=== PATIENT | female | born 1960 | race Caucasian/White ===

== ENCOUNTER 2016-10-27 07:43 | Outpatient (CLI) | payer OTHER ==
[2016-10-27 08:44] LABS: ALBUMIN/GLOBULIN RATIO 1.6 (1.0-2.2); BILIRUBIN,TOTAL 1.5 mg/dL (0.2-1.0); BUN - BLOOD UREA NITROGEN 25 mg/dL (6-20); CALCIUM 10.1 mg/dL (8.5-10.3); CARBON DIOXIDE - CO2 27 mmol/L (21-32); CHLORIDE 102 mmol/L (101-111); CHOL/HDL RATIO 3.3 (<4.4); CHOLESTEROL 207 mg/dL; CREATININE 0.9 mg/dL (0.4-1.0); GFR - MDRD 65 (>89); GLUCOSE 147 mg/dL (70-100); HDL CHOLESTEROL 63 mg/dL; LDL/HDL RATIO 1.7 (<4.4); POTASSIUM 4.1 mmol/L (3.5-5.0); SODIUM 140 mmol/L (135-145); TOTAL PROTEIN 7.6 g/dL (6.7-8.2); TRIGLYCERIDES 180 mg/dL; VLDL CHOLESTEROL 36 mg/dL
[2016-10-27 08:45] LABS: HEMOGLOBIN A1C 0.8 g/dL
== END 2016-10-27 07:44 | disposition home or self-care (01) ==
LOC: LAB 07:43
PROVIDERS: ATTEND Physician Assistant Medical
DX: E78.5 Hyperlipidemia, unspecified (principal); R73.01 Impaired fasting glucose
CPT/HCPCS: 36415; 80053; 80061; 83036

== ENCOUNTER 2016-12-09 08:14 | Outpatient (CLI) | payer OTHER | END 2016-12-09 08:15 | disposition home or self-care (01) | LOC: DI 08:14 | PROVIDERS: ATTEND Physician Assistant Medical | DX: R01.1 Cardiac murmur, unspecified (principal) | CPT/HCPCS: 93306 ==

== ENCOUNTER 2017-02-27 07:37 | Outpatient (CLI) | payer OTHER ==
[2017-02-27 08:53] LABS: ALBUMIN/GLOBULIN RATIO 1.5 (1.0-2.2); BILIRUBIN,TOTAL 1.4 mg/dL (0.2-1.0); BUN - BLOOD UREA NITROGEN 28 mg/dL (6-20); CALCIUM 10.4 mg/dL (8.5-10.3); CARBON DIOXIDE - CO2 26 mmol/L (21-32); CHLORIDE 98 mmol/L (101-111); CHOL/HDL RATIO 3.8 (<4.4); CHOLESTEROL 273 mg/dL; CREATININE 1.1 mg/dL (0.4-1.0); GFR - MDRD 51 (>89); GLUCOSE 133 mg/dL (70-100); HDL CHOLESTEROL 72 mg/dL; LDL/HDL RATIO 2.4 (<4.4); SODIUM 137 mmol/L (135-145); TOTAL PROTEIN 7.9 g/dL (6.7-8.2); TRIGLYCERIDES 157 mg/dL; VLDL CHOLESTEROL 31 mg/dL
[2017-02-27 09:13] LABS: HEMOGLOBIN A1C 0.69 g/dL
== END 2017-02-27 07:38 | disposition home or self-care (01) ==
LOC: LAB 07:37
PROVIDERS: ATTEND Physician Assistant Medical
DX: E11.9 Type 2 diabetes mellitus without complications (principal)
CPT/HCPCS: 36415; 80053; 80061; 83036

== ENCOUNTER 2017-05-24 08:14 | Outpatient (CLI) | payer OTHER ==
[2017-05-24 08:51] LABS: ALBUMIN 4.7 g/dL (3.2-5.5); ALBUMIN/GLOBULIN RATIO 1.6 (1.0-2.2); ALKALINE PHOSPHATASE 50 IU/L (42-121); ALT ALANINE AMINOTRANSFERASE 17 IU/L (10-60); AST ASPARTATE AMINOTRANSFERASE 25 IU/L (10-42); BILIRUBIN,TOTAL 1.6 mg/dL (0.2-1.0); BUN - BLOOD UREA NITROGEN 24 mg/dL (6-20); CALCIUM 10.1 mg/dL (8.5-10.3); CARBON DIOXIDE - CO2 25 mmol/L (21-32); CHLORIDE 100 mmol/L (101-111); CHOL/HDL RATIO 2.8 (<4.4); CHOLESTEROL 172 mg/dL; CREATININE 1.1 mg/dL (0.4-1.0); GFR - MDRD 51 (>89); GLUCOSE 154 mg/dL (70-100); HDL CHOLESTEROL 62 mg/dL; LDL CHOLESTEROL,CALCULATED 85 mg/dL; LDL/HDL RATIO 1.4 (<4.4); SODIUM 137 mmol/L (135-145); TOTAL PROTEIN 7.7 g/dL (6.7-8.2); VLDL CHOLESTEROL 25 mg/dL
[2017-05-24 08:52] LABS: HB2 TOTAL 14.4 g/dL; HEMOGLOBIN A1C 0.78 g/dL; HEMOGLOBIN A1C % 7.1 % (4.6-6.2)
== END 2017-05-24 08:15 | disposition home or self-care (01) ==
LOC: LAB 08:14
PROVIDERS: ATTEND Physician Assistant Medical
DX: E11.9 Type 2 diabetes mellitus without complications (principal)
CPT/HCPCS: 36415; 80053; 80061; 83036; 83721

== ENCOUNTER 2017-08-31 07:34 | Outpatient (CLI) | payer OTHER ==
[2017-08-31 08:06] LABS: CALCIUM 10.2 mg/dL (8.5-10.3)
[2017-08-31 08:47] LABS: HB2 TOTAL 14.8 g/dL; HEMOGLOBIN A1C 1.14 g/dL; HEMOGLOBIN A1C % 9.2 % (4.6-6.2)
== END 2017-08-31 07:35 | disposition home or self-care (01) ==
LOC: LAB 07:34
PROVIDERS: ATTEND Physician Assistant Medical
DX: E11.9 Type 2 diabetes mellitus without complications (principal)
CPT/HCPCS: 36415; 80048; 83036

== ENCOUNTER 2018-01-24 08:18 | Outpatient (CLI) | payer OTHER ==
[2018-01-24 09:04] LABS: ALBUMIN 4.5 g/dL (3.2-5.5); ALBUMIN/GLOBULIN RATIO 1.4 (1.0-2.2); ALKALINE PHOSPHATASE 65 IU/L (42-121); ALT ALANINE AMINOTRANSFERASE 17 IU/L (10-60); AST ASPARTATE AMINOTRANSFERASE 23 IU/L (10-42); BILIRUBIN,TOTAL 1.7 mg/dL (0.2-1.0); BUN - BLOOD UREA NITROGEN 27 mg/dL (6-20); CALCIUM 10.1 mg/dL (8.5-10.3); CARBON DIOXIDE - CO2 28 mmol/L (21-32); CHLORIDE 101 mmol/L (101-111); CHOL/HDL RATIO 2.8 (<4.4); CHOLESTEROL 217 mg/dL; GFR - MDRD 57 (>89); GLUCOSE 154 mg/dL (70-100); HDL CHOLESTEROL 77 mg/dL; LDL CHOLESTEROL,CALCULATED 110 mg/dL; LDL/HDL RATIO 1.4 (<4.4); SODIUM 138 mmol/L (135-145); TOTAL PROTEIN 7.8 g/dL (6.7-8.2); VLDL CHOLESTEROL 30 mg/dL
[2018-01-24 09:06] LABS: HB2 TOTAL 14.9 g/dL; HEMOGLOBIN A1C 0.86 g/dL; HEMOGLOBIN A1C % 7.4 % (4.6-6.2)
== END 2018-01-24 08:19 | disposition home or self-care (01) ==
LOC: LAB 08:18
PROVIDERS: ATTEND Physician Assistant Medical
DX: E11.9 Type 2 diabetes mellitus without complications (principal)
CPT/HCPCS: 36415; 80053; 80061; 83036; 83721

== ENCOUNTER 2018-04-23 08:06 | Outpatient (CLI) | payer OTHER ==
[2018-04-23 09:08] LABS: BUN - BLOOD UREA NITROGEN 17 mg/dL (6-20); CALCIUM 9.9 mg/dL (8.5-10.3); CARBON DIOXIDE - CO2 26 mmol/L (21-32); CHLORIDE 96 mmol/L (101-111); CHOL/HDL RATIO 2.6 (<4.4); CHOLESTEROL 181 mg/dL; GFR - MDRD 57 (>89); GLUCOSE 163 mg/dL (70-100); HDL CHOLESTEROL 70 mg/dL; LDL CHOLESTEROL,CALCULATED 90 mg/dL; LDL/HDL RATIO 1.3 (<4.4); SODIUM 133 mmol/L (135-145); VLDL CHOLESTEROL 21 mg/dL
[2018-04-23 09:48] LABS: HEMOGLOBIN A1C 0.6 g/dL; HEMOGLOBIN A1C % 6.4 % (4.6-6.2)
== END 2018-04-23 08:07 | disposition home or self-care (01) ==
LOC: LAB 08:06
PROVIDERS: ATTEND Physician Assistant Medical
DX: E11.9 Type 2 diabetes mellitus without complications (principal)
CPT/HCPCS: 36415; 80048; 80061; 83036; 83721

== ENCOUNTER 2018-09-03 07:57 | Outpatient (CLI) | payer BC ==
[2018-09-03 08:16] LABS: EOSINOPHILS # (AUTO) 0.1 10^3/uL (0.0-0.7); LYMPHOCYTES # (AUTO) 0.9 10^3/uL (1.5-3.5); LYMPHOCYTES % (AUTO) 17.6 %; MEAN CORPUSCULAR HEMOGLOBIN 29.6 pg (27.0-31.0); MEAN CORPUSCULAR HGB CONC 32.9 g/dL (32.0-36.0); MEAN CORPUSCULAR VOLUME 89.9 fL (81.0-99.0); MEAN PLATELET VOLUME 8.5 fL (7.9-10.8); MONOCYTES # (AUTO) 0.5 10^3/uL (0.0-1.0); MONOCYTES % (AUTO) 9.2 %; NEUTROPHILS # (AUTO) 3.5 10^3/uL (1.5-6.6); NEUTROPHILS % (AUTO) 70.2 %; PLT - PLATELET COUNT 207 10^3/uL (130-450); RED BLOOD COUNT 4.41 10^6/uL (4.20-5.40); RED CELL DISTRIBUTION WIDTH 13.1 % (12.0-15.0); WHITE BLOOD COUNT 4.9 x10^3/uL (4.8-10.8)
[2018-09-03 08:33] LABS: CREATININE,URINE 90.2 mg/dL; MICROALBUM/CREATININE RATIO,UR 85.4 ug/mg (<30.0); MICROALBUMIN,URINE 7.7 mg/dL (0-300.0)
[2018-09-03 08:34] LABS: ALBUMIN 4.3 g/dL (3.2-5.5); ALBUMIN/GLOBULIN RATIO 1.2 (1.0-2.2); ALKALINE PHOSPHATASE 59 IU/L (42-121); ALT ALANINE AMINOTRANSFERASE 21 IU/L (10-60); AST ASPARTATE AMINOTRANSFERASE 25 IU/L (10-42); BILIRUBIN,TOTAL 1.2 mg/dL (0.2-1.0); BUN - BLOOD UREA NITROGEN 22 mg/dL (6-20); CARBON DIOXIDE - CO2 26 mmol/L (21-32); CHLORIDE 95 mmol/L (101-111); CHOL/HDL RATIO 2.9 (<4.4); CHOLESTEROL 154 mg/dL; GFR - MDRD 57 (>89); GLUCOSE 140 mg/dL (70-100); HDL CHOLESTEROL 53 mg/dL; LDL CHOLESTEROL,CALCULATED 87 mg/dL; LDL/HDL RATIO 1.6 (<4.4); SODIUM 134 mmol/L (135-145); TOTAL PROTEIN 7.9 g/dL (6.7-8.2); VLDL CHOLESTEROL 14 mg/dL
[2018-09-03 08:35] LABS: HB2 TOTAL 14.4 g/dL; HEMOGLOBIN A1C 0.7 g/dL; HEMOGLOBIN A1C % 6.6 % (4.6-6.2)
== END 2018-09-03 07:58 | disposition home or self-care (01) ==
LOC: LAB 07:57
PROVIDERS: ATTEND Physician Assistant Medical
DX: E11.9 Type 2 diabetes mellitus without complications (principal); E78.5 Hyperlipidemia, unspecified; D05.12 Intraductal carcinoma in situ of left breast
CPT/HCPCS: 36415; 80053; 80061; 82043; 82570; 83036; 83721; 84443; 85025

== ENCOUNTER 2018-12-12 15:23 | Outpatient (CLI) | payer BC ==
--- NOTE | 2018-12-13 08:07 | XRAY Report ---
Reason: CHRONIC COUGH Procedure Date: 12/12/2018 Accession Number: [id number] / [id number] Procedure: WCP - Chest 2 View X-Ray CPT Code: 80918 FULL RESULT: EXAM: CHEST RADIOGRAPHY EXAM DATE: 12/12/2018 03:23 PM. CLINICAL HISTORY: CHRONIC COUGH. COMPARISON: CHEST 2 VIEW PA/LAT 11/21/2012 9:37 PM. TECHNIQUE: 2 views. FINDINGS: Lungs/Pleura: No localized infiltrate, consolidation, effusion, or pneumothorax. Small calcified adenomata. Mediastinum: Normal heart size, unchanged. Upper lobe vessels not distended. Calcified mediastinal lymph nodes. Other: Postoperative changes. IMPRESSION: No acute disease. RADIA
== END 2018-12-12 23:59 | disposition home or self-care (01) ==
LOC: DI.WCP 15:23
PROVIDERS: ATTEND Physician Assistant Medical
DX: R05 Cough (principal)
CPT/HCPCS: 71046

== ENCOUNTER 2019-03-06 07:48 | Outpatient (CLI) | payer BC ==
[2019-03-06 08:43] LABS: CALCIUM 9.6 mg/dL (8.5-10.3); CREATININE 1.5 mg/dL (0.4-1.0)
[2019-03-06 08:54] LABS: HB2 TOTAL 11.9 g/dL; HEMOGLOBIN A1C 0.65 g/dL; HEMOGLOBIN A1C % 7.1 % (4.6-6.2)
== END 2019-03-06 07:49 | disposition home or self-care (01) ==
LOC: LAB 07:48
PROVIDERS: ATTEND Physician Assistant Medical
DX: E11.9 Type 2 diabetes mellitus without complications (principal)
CPT/HCPCS: 36415; 80048; 83036

== ENCOUNTER 2019-07-17 11:22 | Outpatient (CLI) | payer BC ==
[2019-07-19 14:44] LABS: HEPATITIS B SURFACE ANTIGEN NON-REACTIVE (NON-REACTIVE); HEPATITIS C ANTIBODY NON-REACTIVE (NON-REACTIVE)
[2019-07-20 12:29] LABS: ANA SCREEN NEGATIVE (NEGATIVE)
[2019-07-20 15:55] LABS: ALBUMIN 3.9 g/dL (3.8-4.8); ALPHA 1 GLOBULIN 0.5 g/dL (0.2-0.3); ALPHA 2 GLOBULIN 1.1 g/dL (0.5-0.9); BETA 1 GLOBULIN 0.5 g/dL (0.4-0.6); BETA 2 GLOBULIN 0.4 g/dL (0.2-0.5); GAMMA GLOBULIN 1.4 g/dL (0.8-1.7)
[2019-07-22 16:05] LABS: GLOM BASEMENT MEMBRANE AB IGG <1.0 AI (<1.0)
[2019-07-23 14:59] LABS: COMPLEMENT COMPONENT C3C 163 mg/dL (83-193); COMPLEMENT COMPONENT C4C 39 mg/dL (15-57)
[2019-07-23 15:56] LABS: DNA (DS) ANTIBODY <1 IU/mL
== END 2019-07-17 11:23 | disposition home or self-care (01) ==
LOC: LAB 11:22
PROVIDERS: ATTEND Internal Medicine Nephrology
DX: L93.2 Other local lupus erythematosus (principal); N00.9 Acute nephritic syndrome with unspecified morphologic changes; I77.6 Arteritis, unspecified; D47.2 Monoclonal gammopathy; B19.10 Unspecified viral hepatitis B without hepatic coma; B17.10 Acute hepatitis C without hepatic coma
CPT/HCPCS: 36415; 81599; 83520; 84155; 84165; 86021; 86038; 86160; 86225; 86334; 86803; 87340

== ENCOUNTER 2019-07-21 08:11 | Outpatient (CLI) | payer BC ==
--- NOTE | 2019-07-22 09:02 | Ultrasound Report ---
Reason: ACUTE KIDNEY INJURY Procedure Date: 07/21/2019 Accession Number: [id number] / [id number] Procedure: US - Retroperitoneal CPT Code: Final Report FULL RESULT: EXAM: RENAL ULTRASOUND EXAM DATE: 07/21/2019 10:45 AM. CLINICAL HISTORY: Acute kidney injury. COMPARISON: CHEST W/ 07/04/2013 11:21 AM. TECHNIQUE: Real-time scanning was performed with static images obtained. FINDINGS: Right Kidney: 12.2 x 5.3 x 8.2 cm. There is severe right-sided hydronephrosis, without obstructing calculus. Evidence of cortical thinning. Left Kidney: 9.6 x 5.0 x 3.4 cm. There is moderate to severe left hydronephrosis. Bladder: Bilateral urinary bladder jets were seen, with slow flow on the right. The prevoid bladder volume was 49 cc. The postvoid bladder volume was less than 1 cc. Other: Moderate volume ascites bilaterally in the upper abdomen. IMPRESSION: Severe right and moderate to severe left hydronephrosis. Weak right urinary bladder jets. Moderate ascites in the upper abdomen. No obstructing nephroliths identified. Etiology of the bilateral hydronephrosis not identified on current study. Etiology of bilateral hydronephrosis not identified on current study. Follow-up CT may be helpful for further evaluation. RADIA
== END 2019-07-21 08:12 | disposition home or self-care (01) ==
LOC: DI 08:11
PROVIDERS: ATTEND Internal Medicine Nephrology
DX: N13.30 Unspecified hydronephrosis (principal); R18.8 Other ascites
CPT/HCPCS: 76770; 93975

== ENCOUNTER 2019-07-26 14:03 | Outpatient (CLI) | payer BC ==
--- NOTE | 2019-07-27 22:26 | CT Report ---
Reason: HYDRONEPHROSIS Procedure Date: 07/26/2019 Accession Number: [id number] / [id number] Procedure: CT - Abdomen/Pelvis WO CPT Code: Addended Final Report FULL RESULT: EXAM: CT ABDOMEN AND PELVIS (CT KUB) EXAM DATE: 07/26/2019 02:16 PM. CLINICAL HISTORY: Hydronephrosis. COMPARISONS: MRI ABDOMEN W/O CONT 05/21/2011 8:18 AM. TECHNIQUE: Routine axial helical CT imaging was performed through the abdomen and pelvis without IV contrast. Reconstructions: Coronal and sagittal. In accordance with CT protocol optimization, one or more of the following dose reduction techniques were utilized for this exam: automated exposure control, adjustment of mA and/or KV based on patient size, or use of iterative reconstructive technique. FINDINGS: Lung Bases: Small left pleural effusion with adjacent atelectasis. Small left lung base granuloma. Otherwise no acute findings in the visualized chest. Right Kidney/Ureter: Severe right hydroureteronephrosis with renal pelvis measuring 4 cm transverse. There is hydroureter to level of pelvis where large mass is seen which is likely the cause of obstruction. No urinary calculi. No perinephric fat stranding. There is cortical thinning of right kidney suggesting chronic obstructive process. Left Kidney/Ureter: Moderate left hydroureteronephrosis to level of pelvic mass without evidence of ureteral calculus. Other Solid Organs: Liver, spleen and adrenal glands are unremarkable on noncontrast CT. Pancreas is atrophic with coarse calcifications. Gallbladder/Bile Ducts: Cholecystectomy. No significant biliary dilation. Peritoneal Cavity: Moderate ascites. Peritoneal thickening along the anterior pelvis suspected. No free air. No bowel obstruction. Appendix not seen. There is a large pelvic mass as described below. No significant adenopathy seen although evaluation is limited on noncontrast CT. Pelvic Organs: Bladder is decompressed which limits evaluation. Lobulated mass or masses are present within the pelvis collectively measuring 11.6 x 9.5 x 10.0 cm. Masses appear to abut and displace uterus and bladder anteroinferiorly. Vasculature: Mild atherosclerosis. No abdominal aortic aneurysm. Other: Diffuse heterogeneity of the bones suspicious for widespread osseous metastatic disease. No fracture. IMPRESSION: 1. Large pelvic mass or masses collectively measuring 11.6 x 9.5 x 10.0 cm. Findings are suspicious for neoplasm which is likely of ovarian origin. Recommend contrast-enhanced CT or MR imaging to further assess. 2. Severe right and moderate left hydroureteronephrosis to level of aforementioned pelvic mass. No urinary calculi. 3. Moderate ascites with suspected peritoneal thickening in the pelvis. Malignant ascites is not excluded. 4. Diffuse heterogeneity of bone suspicious for widespread osseous metastatic disease. 5. Small left pleural effusion. 6. Sequela of chronic pancreatitis. 7. Cholecystectomy. RADIA The call report notification system was initiated by Dr. Rosa Prather at 10:18 PM on 07/27/2019. ADDENDUM: 07/28/19 08:45 The above call report findings were discussed with Dr. Caldera by Dr. Orlando Duarte at 08:45 AM on 07/28/2019.
== END 2019-07-26 14:04 | disposition home or self-care (01) ==
LOC: DI 14:03
PROVIDERS: ATTEND Physician Assistant
DX: R19.00 Intra-abdominal and pelvic swelling, mass and lump, unspecified site (principal); N13.30 Unspecified hydronephrosis; M89.9 Disorder of bone, unspecified; J90 Pleural effusion, not elsewhere classified; Z90.49 Acquired absence of other specified parts of digestive tract
CPT/HCPCS: 74176

== ENCOUNTER 2019-08-06 08:48 | Outpatient (CLI) | payer BC ==
[2019-08-06 09:57] LABS: INR 1.2 (0.8-1.2); PT - PROTHROMBIN TIME 13.6 secs (9.9-12.6)
== END 2019-08-06 08:49 | disposition home or self-care (01) ==
LOC: LAB 08:48
PROVIDERS: ATTEND Obstetrics & Gynecology Gynecologic Oncology
DX: R19.00 Intra-abdominal and pelvic swelling, mass and lump, unspecified site (principal)
CPT/HCPCS: 36415; 85610

== ENCOUNTER 2019-09-16 06:53 | Day surgery (SDC) | payer BC ==
[~2019-09-16 06:53] MED LIST: CEFAZOLIN SODIUM IN 0.9 % NACL 2 GM/100 ML BAG IV ONE
--- NOTE | 2019-09-16 06:54 | ANESTHESIA ---
Pre-Anesthesia VS, & Labs - Diagnosis recurrent breast cancer - Procedure portacath placement Vital Signs: Temp Pulse Resp BP Pulse Ox 36.5 C 92 16 108/84 H 100 09/16/19 06:46 09/16/19 06:46 09/16/19 06:46 09/16/19 06:46 09/16/19 06:46 Height 5 ft 4 in Weight (kg) 49.6 kg Body Mass Index 18.8 - Is Patient ?: No - Lab Results Lab results reviewed: Yes Home Medications and Allergies Felodipine [Plendil] 10 mg PO DAILY 09/11/12 Gabapentin 300 mg PO DAILY 09/22/15 Glipizide [Glipizide Xl] 2.5 mg PO BID 09/11/19 Allergies/Adverse Reactions: Allergies Allergy/AdvReac Type Severity Reaction Status Date / Time No Known Drug Allergies Allergy Verified 09/11/19 14:59 Anes History & Medical History - Anesthetic History Anesthesia Complications: reports: Post-Operative Nausea/Vomiting (denies motion sickness) Family history of Anesthesia Complications: Denies Family history of Malignant Hyperthermia: Denies (deep respirations impeded by abdominal ascites. Pt denies SOB or dyspnea) - Medical History Cardiovascular: reports: Hypertension Pulmonary: reports: None Gastrointestinal: reports: None, Other (abdominal ascites) Urinary: reports: None, Other Musculoskeletal: reports: None, Fatigue Endocrine/Autoimmune: reports: Type 2 diabetes Blood Disorders: reports: Anemia Skin: reports: None Smoking Status: Never smoker - Surgical History General: Cholecystectomy Gynecologic: Dilation and currettage, Mastectomy Orthopedic: Other Exam General: Alert, Oriented x3, Cooperative Dental: WNL Mouth Opening: Greater than 4 Fingerbreadths Neck Mobility: Normal Mallampati classification: I Thyromental Distance: 4-6 cm Respiratory: Lungs clear Cardiovascular: Regular rate Abdomen: Other (distended with ascites) Mental/Cognitive Status: Alert/Oriented X3 Cognitive Status: Within normal limits Plan Anesthesia Type: MAC (Patient prefers to minimize sedation. Requests dosing only if she becomes uncomfortable.) Consent for Procedure(s) Verified and Reviewed: Yes Code Status: Attempt Resuscitation ASA classification: 2-Mild systemic disease Is this case an emergency?: No
[2019-09-16] MEDS ORDERED: BUPIVACAINE 0.5% PF 30 ML VIAL ONE (06:58)
[2019-09-16] MEDS ORDERED: LIDOCAINE 1%-EPI 1:100000 20 ML MDV ONE (06:58)
[2019-09-16] MEDS ORDERED: LACTATED RINGERS 1,000 ML IV ONE (06:58)
[2019-09-16] MEDS ORDERED: BUPIVACAINE 0.5%-EPI 1:200000 PF 30 ML VIAL SUBQ ONE ×2 (07:05)
[2019-09-16] MEDS ORDERED: LIDOCAINE 1%-EPI 1:100000 30 ML MDV SUBQ ONE ×2 (07:09)
--- NOTE | 2019-09-16 08:10 | OPERATIVE REPORT ---
Operative Report - General Procedure Date: 09/16/19 Planned Procedure: Left Subclavian Power Port Pre-Op Diagnosis: Recurrent Breast Cancer Procedure Performed: Left Subclavian Power Port Post Op Diagnosis: Recurrent Breast Cancer - Procedure Note Primary Surgeon: Shashi Anesthesia Provider: MI Appiah Anesthesia Technique: Local, MAC Estimated Blood Loss (mL): 5 Indications: Facilitation of chemotherapy Findings: Power port in good position in the superior vena cava Complications: None apparent - Other Other Information/Narrative: After obtaining informed consent, the patient is brought to the operating room and placed in supine position on the operating table. Following successful induction of sedation with monitored anesthesia care and appropriate padding of all bony prominences, the left chest and neck were prepped and draped in the standard surgical fashion. A timeout was held per scope protocol. All elements of the surgical safety checklist were followed before, during, and after the procedure. Following infiltration with local anesthetic to create a field block, the left subclavian vein was accessed in the deltopectoral groove. The J-wire was gently placed into the vein. Fluoroscopy was used to confirm the position of the wire and in the subclavian vein. We anesthetized the existing healed scar in the area around it for placement of the port itself. An incision was created here and carried down through the skin and subcutaneous tissue. A pocket was created with blunt dissection. The port tubing was attached to the tunneling device and passed from the access site of the vein into the pocket. It was trimmed to an appropriate length and the port attached. The port was sewn into place in the pocket. The dilator and introducer were then passed over the J-wire that was in the subclavian vein. The J-wire and dilator were removed leaving only the introducer. The tubing was then passed through the introducer and the introducer cracked and removed per contracts paralegal's directions. The port was then checked for function and flushed and sy easily. Additional local anesthetic was applied to the chest wall. The port pocket was closed with interrupted Vicryl sutures and Monocryl stitches were placed in both skin incision sites. All sponge, needle, and instrument counts were correct at the conclusion of the case. Chest x-ray in the postanesthesia care unit revealed the port in good position in the superior vena cava without evidence of pneumothorax.
[2019-09-16] MEDS ORDERED: ONDANSETRON 4 MG/2 ML VIAL IVP PRN (08:12)
[2019-09-16] MEDS ORDERED: oxyCODONE 5 MG TABLET PO PRN (08:12)
[2019-09-16] MEDS ORDERED: LIDOCAINE OINTMENT 5% 35.44 GM TUBE ONE (08:29)
[2019-09-16 08:33] VITALS: BP 112/83
--- NOTE | 2019-09-16 09:01 | XRAY Report ---
Reason: PORT PLACEMENT Procedure Date: 09/16/2019 Accession Number: [id number] / [id number] Procedure: FL - OR Port-A-Cath CPT Code: Final Report FULL RESULT: EXAM: FLUOROSCOPIC GUIDANCE EXAM DATE: 09/16/2019 08:08 AM. CLINICAL HISTORY: PORT PLACEMENT. COMPARISON: None. FINDINGS: 1 image saved, fluoroscopy less than 1 minute IMPRESSION: Fluoroscopic guidance provided for port placement. Total fluoroscopy time: Less than 1 minute. Number of images: 1. RADIA
--- NOTE | 2019-09-16 09:03 | XRAY Report ---
Reason: Left port Procedure Date: 09/16/2019 Accession Number: [id number] / [id number] Procedure: XR - Post Port Placement 1V CXR CPT Code: 90161 Final Report FULL RESULT: EXAM: CHEST RADIOGRAPHY EXAM DATE: 09/16/2019 08:22 AM. CLINICAL HISTORY: Left port. COMPARISON: CHEST 2 VIEW 12/12/2018 3:07 PM. TECHNIQUE: 1 view. FINDINGS: Lungs/Pleura: Shallow lung volumes without focal consolidations. No pneumothorax identified. Surgical clips left axilla. Mediastinum: Within exam limitations, the cardiomediastinal contour is normal. Other: Interval placement of Groshong port left chest, with distal catheter tip at the SVC/right atrial junction. Minimally imaged catheter in the right abdomen. IMPRESSION: Interval placement of port left chest, with no pneumothorax identified. RADIA
== END 2019-09-16 06:54 | disposition home or self-care (01) ==
LOC: SDS 06:53
PROVIDERS: ATTEND Surgery
DX: C50.919 Malignant neoplasm of unspecified site of unspecified female breast (principal); E11.9 Type 2 diabetes mellitus without complications; E78.00 Pure hypercholesterolemia, unspecified; J45.909 Unspecified asthma, uncomplicated; I10 Essential (primary) hypertension
CPT/HCPCS: 36561; A9270; C1788; J0690; J7120; 71045

== ENCOUNTER 2019-10-14 13:03 | Outpatient (CLI) | payer BC ==
[2019-10-14 13:50] LABS: INR 1.2 (0.8-1.2); PT - PROTHROMBIN TIME 13.8 secs (9.9-12.6)
[2019-10-14 13:57] LABS: PARTIAL THROMBOPLASTIN TIME 38.9 secs (24.9-33.3)
--- NOTE | 2019-10-14 16:02 | OPERATIVE REPORT ---
Operative Report - General Procedure Date: 10/14/19 Planned Procedure: Large volume paracentesis Pre-Op Diagnosis: Malignant ascites Procedure Performed: Large volume paracentesis Post Op Diagnosis: Same - Procedure Note Primary Surgeon: Shashi Anesthesia Technique: Local Estimated Blood Loss (mL): 1 Findings: 4300 mls of straw colored peritoneal fluid Complications: None apparent - Other Other Information/Narrative: After obtaining informed consent, the patient was brought to the ultrasound suite and placed in the supine position on the examination table. Verbal and written consent were obtained for the procedure. The ultrasound was used to identify a clear window of opportunity in the left lower quadrant for placement of a paracentesis catheter. This area was marked. Using the provided kit, the area over the myah was prepped and draped in the standard surgical fashion. The skin was anesthetized with 8 mL of 1% lidocaine. A 2 mm rohit was created in the skin over the abdominal wall at this site. The catheter was directed into the abdominal wall while aspirating to detect entrance into the peritoneal cavity. The catheter was then advanced without the needle and the needle was completely removed. The port catheter was then hooked to vacuum bottles. Clear to straw- colored fluid was then aspirated from the peritoneal cavity. 4.3 L of clear fluid was removed. Once there was no longer free flow of fluid, the catheter was then disconnected from suction, it was removed under direct vision. The wound was cleaned once again and closed with Dermabond. A pressure dressing was applied. All sponge, needle, and instrument counts were correct at the conclusion of the case. The patient tolerated the procedure very well. He was discharged with a return appointment in 1 week.
--- NOTE | 2019-10-15 17:01 | Ultrasound Report ---
Reason: BREAST CA, ASCITES Procedure Date: 10/14/2019 Accession Number: [id number] / [id number] Procedure: US - Abdomen Limited CPT Code: Final Report FULL RESULT: PROCEDURE: Abdomen Limited INDICATIONS: BREAST CA, ASCITES TECHNIQUE: Real-time focused scanning was performed of the abdomen, with image documentation. COMPARISON: CT abdomen pelvis 07/26/2019 FINDINGS: Moderate ascites is noted. Marking for paracentesis is noted. IMPRESSION: Moderate ascites. Reviewed by: Wilma Chawla MD on 10/15/2019 5:00 PM PDT Approved by: Wilma Chawla MD on 10/15/2019 5:00 PM PDT Station ID: [id number]
== END 2019-10-14 13:04 | disposition home or self-care (01) ==
LOC: LAB 13:03 → DI 13:04
PROVIDERS: ATTEND Family Medicine
DX: C78.6 Secondary malignant neoplasm of retroperitoneum and peritoneum (principal); C79.51 Secondary malignant neoplasm of bone; R18.0 Malignant ascites
CPT/HCPCS: 36415; 49083; 76705; 85610; 85730

== ENCOUNTER 2019-10-16 07:00 | Outpatient (CLI) | payer BC ==
[2019-10-16 09:18] LABS: CHOL/HDL RATIO 4.5 (<4.4); CHOLESTEROL 147 mg/dL; HDL CHOLESTEROL 33 mg/dL; LDL CHOLESTEROL,CALCULATED 82 mg/dL; LDL/HDL RATIO 2.5 (<4.4); VLDL CHOLESTEROL 32 mg/dL
[2019-10-16 09:23] LABS: HEMOGLOBIN A1C 0.47 g/dL; HEMOGLOBIN A1C % 6.5 % (4.6-6.2)
== END 2019-10-16 23:59 | disposition home or self-care (01) ==
LOC: LAB.R 07:00
PROVIDERS: ATTEND Physician Assistant Medical
DX: E11.9 Type 2 diabetes mellitus without complications (principal)
CPT/HCPCS: 80061; 83036; 83721

== ENCOUNTER 2019-10-16 08:47 | Outpatient (CLI) | payer BC ==
--- NOTE | 2019-10-16 19:30 | CONSULTATION NOTE ---
Palliative Care Consultation - Referral Referring Provider: Dr. Yair Joe Time of Visit: Referral setting: [facility] – [place] Referral Reason: Recurrent Breast Ca with mets to bone/pelvic mass/ascites - Information Sources Records reviewed: RN notes reviewed, Previous records reviewed History/Review of Systems obtained from: Patient, Family ( Larry at visit) Exam limitations: No limitations - History of Present Illness Brief History of Present Illness: This is a rian 58-year-old woman who was doing fairly well, had a renal ultrasound in response to an elevated creatinine in July. Unfortunately found bilateral hydronephrosis and ascites, which led to CT scan revealing a 12 cm pelvic mass. She did have bilateral ureteral stenting on 08/27. And a biopsy at [facility], with a diagnosis of recurrent lobular CA 08/22 2019. Patient was fairly asymptomatic up to this point in time, then developed lower extremity edema, recurrent ascites, she has had her fifth paracentesis on 10/13. She also has a known left pleural effusion. In her staging, they did find metastatic disease to the bone, as well as the pelvic mass. And she is designated as recurrent stage IV, ER/IN positive, HER-2 negative breast cancer. Patient originally was diagnosed with history of stage III [id number] left breast intraductal carcinoma, ER positive, HER-2 negative. She felt like she gave it all she could, with aggressive management of a bilateral mastectomy, left axillary node dissection and received adjuvant chemotherapy with AC/T with some severe neuropathy. She also received adjuvant radiation to her left chest wall, all adjuvant therapy was completed and 11/2012. She had been on Aromasin for 1 year, no further treatment beyond this. Patient does understand the seriousness of her illness, but also that this is treatable metastatic disease. She will be receiving Doxil as a single agent, with the hope to control disease and decrease her need for paracentesis. She has had a Port-A-Cath placed, and does understand she will be receiving treatment ongoing from this point forward. She is not symptomatic at this point in time from her bone mets. Palliative care establishing care today, meeting with her Rajat patient today takes tablets rapport, evaluate symptom burden, and provide ongoing support and anticipatory guidance. 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 Support System: Patient lives at home with her rian Larry of 26 years. Currently both her daughters Amirah is 24 is at home providing support as well as Jose Antonio 23, she is getting ready to graduate from [employer]. He reports they are close family, have gone through this 8 years ago, that this is a different adventure. Larry does work here and has for 16 years, Sanam is an RN in OR team, has been working from home, and preparing to return a couple of days a week. Family History - Family History Family History: Mother: , CVA/TIA, Father: , CAD (used DWD), Other family: Alive and Well, Hypertension Medications/Allergies - Medications Home Medications: Ambulatory Orders Medication Instructions Recorded Confirmed Felodipine [Plendil] 10 mg PO DAILY 09/11/12 10/16/19 Gabapentin 300 mg PO DAILY 09/22/15 10/16/19 Glipizide [Glipizide Xl] 2.5 mg PO BID 09/11/19 10/16/19 Ondansetron HCl [Zofran] 8 mg PO BID PRN 09/17/19 10/16/19 Prochlorperazine Maleate 10 mg PO Q6HR PRN 09/17/19 10/16/19 Atorvastatin [Lipitor] 5 mg PO DAILY 09/25/19 10/16/19 - Allergies Allergies/Adverse Reactions: Allergies Allergy/AdvReac Type Severity Reaction Status Date / Time No Known Drug Allergies Allergy Verified 10/16/19 08:58 Review of Systems - Constitutional Constitutional: reports: Fatigue. denies: Fever, Chills - Eyes Eyes: reports: Vision loss, Corrective lenses - Ears, Nose & Throat Ears, Nose & Throat: reports: Hearing loss - Cardiovascular Cardiovascular: reports: Edema (LE up to mid calf; tender), Exertional dyspnea (with increasing ascites), Decr. exercise tolerance - Respiratory Respiratory: reports: Cough (dry; worsens with ascites; relief with paracentesis), SOB with exertion - Gastrointestinal Gastrointestinal: reports: Abdominal distention, Constipation, Bloating, Good appetite. denies: Nausea, Reflux/heartburn - Genitourinary Genitourinary: reports: Frequency - Neurological Neurological: reports: General weakness - Psychiatric Psychiatric: reports: Depression - Endocrine Endocrine: reports: Diabetes type 2 - Hematologic/Lymphatic Hematologic/Lymphatic: reports: Anemia. denies: Recurrent infections - All Other Systems All Other Systems: reports: Reviewed and negative Palliative Care - POLST Patient has POLST: No Pain: Comment (pain fluctuates; persistent with LE edema; worsens with pressure of ascites; some vague pelvic pain; reliefed with hot tub) Tiredness/Fatigue: Mild (1-3) Drowsiness/Sedation: None Nausea: None Anorexia: None Dyspnea: Mild (1-3), Comment (with ascites) Depression: Mild (1-3) Anxiety: None Feelings of wellbeing/Perceived Quality of Life: Good, Acceptable Constipation: Yes, Intermittent constipation (u) Performance Status: uses miralax - Palliative Care Discussion: Patient and , very close, are reflective of this is definitely a different narrative than their original treatment. They had given it all, without the thought of recurrence. They do understand the seriousness of her current diagnosis, but are hoping for the best and for both quality and quantity of life. We did discuss the emotional ups and downs, particularly normal grieving process, as well as impact on family and friends. Introduced the role of advanced care planning, will complete DPOAE. Results - Lab Results Lab results reviewed: Yes Impression and Recommendations - Palliative Care Impression: This is a 58-year-old woman with recurrent stage IV breast cancer with mets to the bone and pelvis since 07/2019. Patient does have history of stage IIIb left breast intraductal carcinoma, status post bilateral mastectomy, adjuvant chemo and radiation. Patient has had recurrent ascites, lower extremity edema, and mild discomfort and fatigue. Palliative care to provide support and establish rapport for ongoing support. Recommendations/Counseling Done: 1. Recurrent stage IV metastatic breast cancer to the bone and pelvis. Patient just received paracentesis, hope is for decreased need and increased time. With response to treatment. Patient also being evaluated for Zometa, did encourage follow-up with dental evaluation. She is somewhat dentist adverse. Patient currently nonsymptomatic regarding her bone mets, but is concerned regarding looking forward into the future. 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 She does find information helpful in her coping. 2. Depression. Patient presents with normal grief and loss issues, counseling provided to normalize current grief and emotional reactions. Goals at this point in time are hopefully to return and travel to [place], they do have a home there. She is planning to continue to work, hoping to have somewhat a "normal" life though recognizing things have changed dramatically. She does have good community support both to work and family and friends. Did introduce the role of both palliative care social work instructor and paper tube cutter both for her, daughters, or if wanted to access. 3. Advanced care planning. Discussed really all that needs to be done at current time, is her D POA for healthcare, she is a primary in a secondary, I did give simple form. She does have more expanded form that includes living directive. Currently at this time focus is on improving and hoping for good response from her current regimen. Counseling provided regarding the role of palliative care and support, contact information given. Agreed with check-in every few treatments, encouraged to reach out if symptom management issues arise. Time Spent: 50 minutes with greater than 50% of this done in counseling regarding goals of care, quality of life issues, and anticipatory guidance.
== END 2019-10-16 08:48 | disposition home or self-care (01) ==
LOC: PC 08:47
PROVIDERS: ATTEND Nurse Practitioner Adult Health
DX: Z51.5 Encounter for palliative care (principal); J90 Pleural effusion, not elsewhere classified; R18.8 Other ascites; F32.9 Major depressive disorder, single episode, unspecified; C79.51 Secondary malignant neoplasm of bone; C79.89 Secondary malignant neoplasm of other specified sites; Z85.3 Personal history of malignant neoplasm of breast; Z90.13 Acquired absence of bilateral breasts and nipples
CPT/HCPCS: 99204

== ENCOUNTER 2019-10-23 09:10 | Outpatient (CLI) | payer BC ==
[2019-10-23 09:33] LABS: CALCIUM 8.7 mg/dL (8.5-10.3); CREATININE 1.7 mg/dL (0.4-1.0)
== END 2019-10-23 09:11 | disposition home or self-care (01) ==
LOC: LAB 09:10
PROVIDERS: ATTEND Internal Medicine Nephrology
DX: N05.9 Unspecified nephritic syndrome with unspecified morphologic changes (principal)
CPT/HCPCS: 36415; 80048

== ENCOUNTER 2019-11-04 11:59 | Outpatient (CLI) | payer BC ==
--- NOTE | 2019-11-04 14:38 | Ultrasound Report ---
PROCEDURE: Abdominal Paracentesis INDICATIONS: ASCITES, BREAST CA TECHNIQUE: The indications, alternatives, benefits, risks, and complications of the procedure were explained to the patient. Written informed consent was obtained and placed in the chart. The abdomen and pelvis were examined sonographically, and an appropriate site was chosen for paracentesis. The skin was pre pared and draped in the usual sterile fashion, and 1% lidocaine was infiltrated from the skin down th rough the peritoneal surface. A 19-gauge catheter-covered needle was then introduced into the perito karla space, the catheter was advanced and the needle was withdrawn, and thereafter peritoneal fluid w as withdrawn. The catheter was then removed and a dressing was applied. The fluid was discarded if the clinician did not order diagnostic testing of the fluid. COMPARISON: None. FINDINGS: Access site: Right lower quadrant Needle: One-Step centesis catheter with introducer needle. Fluid volume and description: 4000 cc of serous fluid Fluid sent for diagnostic testing: Not requested Medications: 1% lidocaine for local anaesthesia. Complications: None. IMPRESSION: Successful ultrasound-guided paracentesis. Reviewed by: Kelvin Castro MD on 11/04/2019 2:37 PM PDT Approved by: Kelvin Castro MD on 11/04/2019 2:37 PM PDT Station ID: [id number]
== END 2019-11-04 12:00 | disposition home or self-care (01) ==
LOC: DI 11:59
PROVIDERS: ATTEND Internal Medicine
DX: C78.6 Secondary malignant neoplasm of retroperitoneum and peritoneum (principal); C79.51 Secondary malignant neoplasm of bone; R18.0 Malignant ascites
CPT/HCPCS: 49083

== ENCOUNTER 2019-11-07 14:34 | Outpatient (CLI) | payer BC | END 2019-11-07 14:35 | disposition home or self-care (01) | LOC: LAB 14:34 | PROVIDERS: ATTEND Urology | DX: Z01.818 Encounter for other preprocedural examination (principal); N13.30 Unspecified hydronephrosis; Z20.828 Contact with and (suspected) exposure to other viral communicable diseases | CPT/HCPCS: 81599 ==

== ENCOUNTER 2019-11-11 07:54 | Day surgery (SDC) | payer BC ==
[2019-11-11] MEDS ORDERED: fentaNYL 100 MCG/2 ML VIAL IVP ONE (07:55)
[2019-11-11] MEDS ORDERED: PROPOFOL 200 MG/20 ML VIAL IVP ONE (07:55)
[2019-11-11] MEDS ORDERED: PHENYLEPHRINE 50 MG/5 ML VIAL IV ONE (07:55)
[2019-11-11] MEDS ORDERED: KETAMINE 500 MG/10 ML VIAL IVP ONE (07:55)
[2019-11-11] MEDS ORDERED: MIDAZOLAM 2 MG/2 ML VIAL IVP ONE (07:55)
[2019-11-11] MEDS ORDERED: ONDANSETRON 4 MG/2 ML VIAL IVP ONE (07:55)
[2019-11-11] MEDS ORDERED: CEFAZOLIN SODIUM IN 0.9 % NACL 2 GM/100 ML BAG IV ONE (08:02)
--- NOTE | 2019-11-11 08:31 | ANESTHESIA ---
Pre-Anesthesia VS, & Labs - Diagnosis Renal obstruction - Procedure Cystoscopy urethreal stent placement Vital Signs: Temp Pulse Resp BP Pulse Ox 36.4 C L 107 H 16 97/71 100 11/11/19 08:06 11/11/19 08:06 11/11/19 08:06 11/11/19 08:06 11/11/19 08:06 Height 5 ft 4 in Weight (kg) 47 kg Body Mass Index 18.8 - NPO >8 hours - Is Patient ?: No - Lab Results Lab results reviewed: Yes Home Medications and Allergies Felodipine [Plendil] 10 mg PO DAILY 09/11/12 Gabapentin 300 mg PO DAILY 09/22/15 Glipizide [Glipizide Xl] 2.5 mg PO BID 09/11/19 Ondansetron HCl [Zofran] 8 mg PO BID PRN 09/17/19 Prochlorperazine Maleate 10 mg PO Q6HR PRN 09/17/19 Atorvastatin [Lipitor] 10 mg PO DAILY 09/25/19 Allergies/Adverse Reactions: Allergies Allergy/AdvReac Type Severity Reaction Status Date / Time No Known Drug Allergies Allergy Verified 10/16/19 08:58 Anes History & Medical History - Anesthetic History Anesthesia Complications: reports: No previous complications Family history of Anesthesia Complications: Denies Family history of Malignant Hyperthermia: Denies - Medical History Cardiovascular: reports: Hypertension Pulmonary: reports: None Gastrointestinal: reports: None Urinary: reports: Other Musculoskeletal: reports: None Endocrine/Autoimmune: reports: Type 2 diabetes Blood Disorders: reports: Anemia Skin: reports: None Smoking Status: Never smoker - Surgical History General: Cholecystectomy, Other Gynecologic: Dilation and currettage, Mastectomy Orthopedic: Other Exam General: Alert, Oriented x3, Cooperative Dental: WNL Mouth Openin Fingerbreadth Neck Mobility: Normal Mallampati classification: I Thyromental Distance: 4-6 cm Respiratory: Lungs clear Cardiovascular: Regular rate Plan Anesthesia Type: General, Total IV Consent for Procedure(s) Verified and Reviewed: Yes Code Status: Attempt Resuscitation ASA classification: 3-Severe systemic disease Is this case an emergency?: No
[2019-11-11] MEDS ORDERED: LACTATED RINGERS 1,000 ML IV ONE (08:35)
[2019-11-11] MEDS ORDERED: LIDOCAINE 2% 50 ML MDV TOP ONE (09:32)
[2019-11-11] MEDS ORDERED: HYDROmorphone 0.5 MG/0.5 ML SYRINGE IVP PRN (09:47)
[2019-11-11] MEDS ORDERED: ONDANSETRON 4 MG/2 ML VIAL IVP PRN (09:47)
[2019-11-11] MEDS ORDERED: HYDROcod/ACETAM 5/325 MG TABLET PO PRN (09:47)
[2019-11-11] MEDS ORDERED: PHENAZOPYRIDINE 100 MG TABLET PO STA (09:47)
--- NOTE | 2019-11-11 10:34 | XRAY Report ---
Reason: URETERAL STENT PLACEMENT Procedure Date: 11/11/2019 Accession Number: [id number] / [id number] Procedure: FL - OR C-Arm Procedure CPT Code: Final Report FULL RESULT: PROCEDURE: OR C-Arm Procedure INDICATIONS: URETERAL STENT PLACEMENT TECHNIQUE: Intraoperative fluoroscopic images were acquired. COMPARISON: CT abdomen pelvis 07/26/2019. FINDINGS: Limited intraoperative images demonstrate bilateral ureterovesicular stents. IMPRESSION: Bilateral ureterovesicular stents. Reviewed by: Wilma Chawla MD on 11/11/2019 10:32 AM PDT Approved by: Wilma Chawla MD on 11/11/2019 10:32 AM PDT Station ID: [id number]
[2019-11-11 11:20] VITALS: BP 99/68
--- NOTE | 2019-11-14 12:28 | OPERATIVE REPORT ---
DATE OF SERVICE: 11/11/2019 Physician: Wen Erazo MD PROCEDURE PERFORMED: Cystoscopy with bilateral double-J stent exchange. SURGEON: Wen Erazo MD ANESTHESIA: General. PREOPERATIVE DIAGNOSIS: Bilateral ureteral obstruction. POSTOPERATIVE DIAGNOSIS: Bilateral ureteral obstruction. INDICATIONS: Patient is a 59-year-old woman with a history of bilateral ureteral obstruction related to metastatic breast cancer, brought to the operating room for routine double-J stent exchange. She was counseled about risks, benefits, and wished to proceed. PROCEDURE IN DETAIL: After appropriate informed consent was obtained, patient was brought to the operating room. She received IV antibiotics prior to the procedure. SCDS were placed. Adequate general anesthesia was induced. She was carefully placed in dorsal lithotomy position. All pressure points carefully padded. Cleaned, prepped and draped in the usual sterile fashion. Rigid scope was introduced into her bladder. The ends of both stents were seen. They were minimally changed with age dwell time in bladder. We grasped first the right stent, and this was brought to the meatus. We passed a wire up through the stent into good position in the renal pelvis as seen fluoroscopically. The stent itself was removed. We then backloaded the wire through the scope and advanced a fresh 8-Colombian x 24 cm double-J stent over the wire in a good position in the patient's kidney with a curl seen fluoroscopically proximally and a curl seen physically distally. The fit was snug, but it lay in good position. We then turned our attention to the left side. We passed a wire up alongside the left-sided double-J stent fluoroscopically to see this into the kidney. Removed this with the alligator forceps, then backloaded the wire through the scope. Advanced a fresh 8-Colombian x 26 cm double-J stent over the wire through the scope. Curl seen fluoroscopically on the cephalad end and a curl seen through the scope on the distal end, was a good position. This was likewise somewhat compressed and stiff to get in, but settled into a very nice position. We irrigated out some minimal hematuria into the bladder, drained the bladder. Patient tolerated the procedure well, was awakened and taken in stable condition to the postanesthesia care unit. TD: 11/14/2019 11:59 [facility]
== END 2019-11-11 07:55 | disposition home or self-care (01) ==
LOC: SDS 07:54
PROVIDERS: ATTEND Urology
DX: N13.1 Hydronephrosis with ureteral stricture, not elsewhere classified (principal); R18.0 Malignant ascites; C79.89 Secondary malignant neoplasm of other specified sites; C79.51 Secondary malignant neoplasm of bone; Z78.0 Asymptomatic menopausal state; M85.852 Other specified disorders of bone density and structure, left thigh; Z79.84 Long term (current) use of oral hypoglycemic drugs; I10 Essential (primary) hypertension; E11.9 Type 2 diabetes mellitus without complications
CPT/HCPCS: 52332; 77080; C1758; J0690; J7120

== ENCOUNTER 2019-11-11 14:21 | Outpatient (CLI) | payer BC ==
--- NOTE | 2019-11-11 17:23 | DEXA Report ---
Reason: POST MENOPAUSAL Procedure Date: 11/11/2019 Accession Number: [id number] / [id number] Procedure: DEX - Dexa Spine and/or Hip CPT Code: Final Report FULL RESULT: PROCEDURE: Dexa Spine and/or Hip INDICATIONS: POST MENOPAUSAL TECHNIQUE: Dual energy x-ray absorptiometry (DXA) was performed on a [employer] System. Regions measured are the AP Spine, femoral neck, and if needed forearm. COMPARISON: None. FINDINGS: Lumbar Spine: Bone Mineral Density 1.313 g/cm/cm,T score 1.1, normal, change from previous, increased. Previous T score was -0.9. Statistical comparison not possible secondary to changes in scan technique. Left Hip: Bone Mineral Density 0.899 g/cm/cm,T score -0.9, normal, change from previous, decreased. Previous T score was 0.1. Left Femoral Neck: Bone Mineral Density 0.875 g/cm/cm, T score -1.2, osteopenia, change from previous, decreased. Previous T score was -0.5 (T score greater or equal to -1.0: NORMAL) (T score from -1.1 to -2.4: OSTEOPENIA) (T score less than or equal to -2.5 to: OSTEOPOROSIS) Impression: 1. Osteopenia of the left femoral neck elevates the patient's fracture risk. 2. Decrease in left hip bone mineral density compared to the prior study. Patients with diagnosis of osteoporosis or osteopenia should have regular bone mineral density assessment. For those eligible for Medicare, routine testing is allowed once every 2 years. Testing frequency can be increased for patients who have rapidly progressing disease or for those who are receiving medical therapy to restore bone mass. Reviewed by: Anita Orozco MD on 11/11/2019 5:22 PM PDT Approved by: Anita Orozco MD on 11/11/2019 5:22 PM PDT Station ID: [id number]
== END 2019-11-11 14:22 | disposition home or self-care (01) ==
LOC: DI 14:21
PROVIDERS: ATTEND Internal Medicine
DX: Z78.0 Asymptomatic menopausal state (principal); M85.852 Other specified disorders of bone density and structure, left thigh; C79.51 Secondary malignant neoplasm of bone; R18.0 Malignant ascites
CPT/HCPCS: 77080

== ENCOUNTER 2019-11-18 13:01 | Outpatient (CLI) | payer BC ==
[2019-11-18 14:08] LABS: INR 1.1 (0.8-1.2)
[2019-11-18 14:15] LABS: PARTIAL THROMBOPLASTIN TIME 39.4 secs (24.9-33.3)
--- NOTE | 2019-11-18 17:09 | Ultrasound Report ---
PROCEDURE: Abdominal Paracentesis INDICATIONS: ASCITES, BREAST CA TECHNIQUE: The indications, alternatives, benefits, risks, and complications of the procedure were explained to the patient. Written informed consent was obtained and placed in the chart. The abdomen and pelvis were examined sonographically, and an appropriate site was chosen for paracentesis. The skin was pre pared and draped in the usual sterile fashion, and 1% lidocaine was infiltrated from the skin down th rough the peritoneal surface. A 19-gauge catheter-covered needle was then introduced into the perito karla space, the catheter was advanced and the needle was withdrawn, and thereafter peritoneal fluid w as withdrawn. The catheter was then removed and a dressing was applied. The fluid was discarded if the clinician did not order diagnostic testing of the fluid. COMPARISON: None FINDINGS: Access site: Right lower quadrant Needle: One-Step centesis catheter with introducer needle. Fluid volume and description: 3.5 L clear yellow Fluid sent for diagnostic testing: No Medications: 1% lidocaine for local anaesthesia. Complications: None. IMPRESSION: Successful ultrasound-guided paracentesis. Reviewed by: Wilma Chawla MD on 11/18/2019 5:08 PM PDT Approved by: Wilma Chawla MD on 11/18/2019 5:08 PM PDT Station ID: [id number]
== END 2019-11-18 13:02 | disposition home or self-care (01) ==
LOC: DI 13:01
PROVIDERS: ATTEND Internal Medicine
DX: C78.6 Secondary malignant neoplasm of retroperitoneum and peritoneum (principal); C79.51 Secondary malignant neoplasm of bone; R18.0 Malignant ascites
CPT/HCPCS: 36415; 49083; 85610; 85730

== ENCOUNTER 2019-12-02 11:46 | Outpatient (CLI) | payer BC ==
--- NOTE | 2019-12-02 14:30 | Ultrasound Report ---
PROCEDURE: Abdominal Paracentesis INDICATIONS: ASCITES, BREAST CA TECHNIQUE: The indications, alternatives, benefits, risks, and complications of the procedure were explained to the patient. Written informed consent was obtained and placed in the chart. The abdomen and pelvis were examined sonographically, and an appropriate site was chosen for paracentesis. The skin was pre pared and draped in the usual sterile fashion, and 1% lidocaine was infiltrated from the skin down th rough the peritoneal surface. A 19-gauge catheter-covered needle was then introduced into the perito karla space, the catheter was advanced and the needle was withdrawn, and thereafter peritoneal fluid w as withdrawn. The catheter was then removed and a dressing was applied. The fluid was discarded if the clinician did not order diagnostic testing of the fluid. COMPARISON: None FINDINGS: Access site: Right lower quadrant Needle: One-Step centesis catheter with introducer needle. Fluid volume and description: 3800 cc of clear yellow Fluid sent for diagnostic testing: Requested Medications: 1% lidocaine for local anaesthesia. Complications: None. IMPRESSION: Successful ultrasound-guided paracentesis. No immediate complications. Reviewed by: Elisa Christopher MD, PhD on 12/02/2019 2:28 PM PDT Approved by: Elsia Christopher MD, PhD on 12/02/2019 2:28 PM PDT Station ID: [id number]
== END 2019-12-02 11:47 | disposition home or self-care (01) ==
LOC: DI 11:46
PROVIDERS: ATTEND Internal Medicine
DX: C78.6 Secondary malignant neoplasm of retroperitoneum and peritoneum (principal); C79.51 Secondary malignant neoplasm of bone; R18.0 Malignant ascites
CPT/HCPCS: 49083

== ENCOUNTER 2019-12-16 13:09 | Outpatient (CLI) | payer BC ==
--- NOTE | 2019-12-16 16:22 | Ultrasound Report ---
PROCEDURE: Abdominal Paracentesis INDICATIONS: ASCITES, BREAST CA TECHNIQUE: The indications, alternatives, benefits, risks, and complications of the procedure were explained to the patient. Written informed consent was obtained and placed in the chart. The abdomen and pelvis were examined sonographically, and an appropriate site was chosen for paracentesis. The skin was pre pared and draped in the usual sterile fashion, and 1% lidocaine was infiltrated from the skin down th rough the peritoneal surface. A 19-gauge catheter-covered needle was then introduced into the perito karla space, the catheter was advanced and the needle was withdrawn, and thereafter peritoneal fluid w as withdrawn. The catheter was then removed and a dressing was applied. The fluid was discarded if the clinician did not order diagnostic testing of the fluid. COMPARISON: None FINDINGS: Access site: Right lower quadrant Needle: One-Step centesis catheter with introducer needle. Fluid volume and description: 3400 cc Fluid sent for diagnostic testing: Yellow Medications: 1% lidocaine for local anaesthesia. Complications: None. IMPRESSION: Successful ultrasound-guided paracentesis. Reviewed by: Wilma Chawla MD on 12/16/2019 4:21 PM PDT Approved by: Wilma Chawla MD on 12/16/2019 4:21 PM PDT Station ID: [id number]
== END 2019-12-16 13:10 | disposition home or self-care (01) ==
LOC: DI 13:09
PROVIDERS: ATTEND Internal Medicine
DX: C78.6 Secondary malignant neoplasm of retroperitoneum and peritoneum (principal); R18.0 Malignant ascites; C50.919 Malignant neoplasm of unspecified site of unspecified female breast; C79.51 Secondary malignant neoplasm of bone
CPT/HCPCS: 49083

== ENCOUNTER 2020-01-01 12:32 | Outpatient (CLI) | payer BC ==
--- NOTE | 2020-01-01 14:19 | Ultrasound Report ---
PROCEDURE: Abdominal Paracentesis INDICATIONS: ASCITES TECHNIQUE: The indications, alternatives, benefits, risks, and complications of the procedure were explained to the patient. Written informed consent was obtained and placed in the chart. The abdomen and pelvis were examined sonographically, and an appropriate site was chosen for paracentesis. The skin was pre pared and draped in the usual sterile fashion, and 1% lidocaine was infiltrated from the skin down th rough the peritoneal surface. A 19-gauge catheter-covered needle was then introduced into the perito karla space, the catheter was advanced and the needle was withdrawn, and thereafter peritoneal fluid w as withdrawn. The catheter was then removed and a dressing was applied. The fluid was discarded if the clinician did not order diagnostic testing of the fluid. COMPARISON: None. FINDINGS: Access site: Right lower quadrant Needle: One-Step centesis catheter with introducer needle. Fluid volume and description: 1800 cc of serous ascites Fluid sent for diagnostic testing: Not requested Medications: 1% lidocaine for local anaesthesia. Complications: None. IMPRESSION: Technically successful ultrasound-guided paracentesis. Reviewed by: Kelvin Castro MD on 01/01/2020 2:18 PM PDT Approved by: Kelvin Castro MD on 01/01/2020 2:18 PM PDT Station ID: [id number]
== END 2020-01-01 12:33 | disposition home or self-care (01) ==
LOC: DI 12:32
PROVIDERS: ATTEND Internal Medicine
DX: C78.6 Secondary malignant neoplasm of retroperitoneum and peritoneum (principal); R18.0 Malignant ascites; C79.51 Secondary malignant neoplasm of bone
CPT/HCPCS: 49083

== ENCOUNTER 2020-01-27 08:57 | Outpatient (CLI) | payer BC ==
[2020-01-27 09:13] LABS: INR 1.1 (0.8-1.2); PT - PROTHROMBIN TIME 12.5 secs (9.9-12.6)
[2020-01-27 09:21] LABS: PARTIAL THROMBOPLASTIN TIME 37.3 secs (24.9-33.3)
--- NOTE | 2020-01-27 12:14 | Ultrasound Report ---
PROCEDURE: Abdomen Limited INDICATIONS: CANCELLED PARA, LACK OF ASCITES TECHNIQUE: Real-time focused scanning was performed of the abdomen, with image documentation. COMPARISON: 01/01/2020 FINDINGS: A small amount of fluid is present in the lower quadrants, no enough for safe paracentesis . IMPRESSION: 1. Small amount of ascites, insufficient quantity for paracentesis. Reviewed by: Anita Orozco MD on 01/27/2020 11:13 AM [facility] Approved by: Anita Orozco MD on 01/27/2020 11:13 AM [facility] Station ID: [id number]
== END 2020-01-27 08:58 | disposition home or self-care (01) ==
LOC: LAB 08:57
PROVIDERS: ATTEND Internal Medicine
DX: C78.6 Secondary malignant neoplasm of retroperitoneum and peritoneum (principal); C79.51 Secondary malignant neoplasm of bone; R18.0 Malignant ascites
CPT/HCPCS: 36415; 76705; 85610; 85730

== ENCOUNTER 2020-05-13 16:15 | Outpatient (CLI) | payer BC ==
--- NOTE | 2020-05-13 17:28 | XRAY Report ---
PROCEDURE: Thoracic Spine 3 View INDICATIONS: BREAST CA TECHNIQUE: 3 views of the thoracic spine were acquired. COMPARISON: None. FINDINGS: Bones: No fractures or dislocations but there is generalized heterogeneity and increased radiodensit y of the axial and appendicular structures included on this imaging. No suspicious bony lesions. 12 pairs of ribs are noted, and appear intact where visualized. Soft tissues: No paravertebral stripe thickening. IMPRESSION: Extensive osseous metastatic disease without compression fractures identified. Reviewed by: Alirio Harkins MD on 05/13/2020 5:26 PM PST Approved by: Alirio Harkins MD on 05/13/2020 5:26 PM PST Station ID: [id number]
--- NOTE | 2020-05-13 17:29 | XRAY Report ---
PROCEDURE: Lumbar Spine 2 View INDICATIONS: BREAST CA TECHNIQUE: 2 views of the lumbar spine were acquired. COMPARISON: Thoracic spine plain films same day FINDINGS: Bones: 5 ang-vlc-utperpq vertebrae are present. There is normal bony alignment. No vertebral body compression fractures. There is generalized osteoblastic metastatic disease involving the pelvis, pro ximal femurs, and the visualized lower lumbosacral spine and thoracolumbar regions.. Soft tissues: Overlying bowel gas pattern is normal. No suspicious soft tissue calcifications. Note is made of bilateral double pigtail ureteral catheters, in expected position IMPRESSION: Extensive osteoblastic metastatic disease, bilateral ureteral pigtail catheters are pres ent in expected position. Reviewed by: Alirio Harkins MD on 05/13/2020 5:28 PM PST Approved by: Alirio Harkins MD on 05/13/2020 5:28 PM PST Station ID: [id number]
--- NOTE | 2020-05-13 17:30 | XRAY Report ---
PROCEDURE: Cervical Spine 2 View INDICATIONS: BREAST CA TECHNIQUE: 3 view(s) of the cervical spine were acquired. COMPARISON: None. FINDINGS: Bones: No fractures or dislocations to the T1 level. The lateral masses of C1 appear intact on the odontoid view. No suspicious bony lesions. Extensive osteoblastic metastatic disease, no compressio n fracture seen. Note is made of a Port-A-Cath superimposed on the upper left chest in normal positio n. Soft tissues: No prevertebral soft tissue swelling. IMPRESSION: Osteoblastic metastatic disease within the cervical spine, generalized as has been seen through the thoracic and lumbosacral spine on additional imaging today. No compression fracture. Reviewed by: Alirio Harkins MD on 05/13/2020 5:29 PM PST Approved by: Alirio Harkins MD on 05/13/2020 5:29 PM PST Station ID: [id number]
--- NOTE | 2020-05-13 17:32 | ONCOLOGY/HEMATOLOGY VISIT ---
HEME/ONC PROGRESS NOTE: CHUN/ONC PROGRESS NOTE: ONCOLOGY HISTORY: 1. -Recurrent stage IV, ER/NM positive, HER-2 negative breast cancer with metastases to bone and pelvis since 07/2027 -History of stage III [id number] left breast IDC, ER positive HER-2 negative -Bilateral mastectomy, left axillary lymph node dissection, adjuvant chemotherapy with AC/T, cycle 12 Taxol discontinued due to neuropathy, status post adjuvant XRT to left chest wall completed 11/24/2012 -Aromasin for 1 year, but no continuation of therapy after this due to unclear reasons -Presented with peritoneal carcinomatosis and ascites with pelvic mass on CT on 07/2019 -Biopsy pelvic mass positive for primary breast cancer, ER +99%, NM +9 9%, HER-2 negative -Cycle 1 day 1 Doxil 40 sky per meter squared 09/17/2019-Cycle 2 with increased Doxil 50 sky per meter squared -Completed cycle 4 of Doxil on 12/11/2019 -Letrozole 2.5 mg started 12/11/2019 -Dose reduction of letrozole 2.5 mg to every other day to 2 increasing diarrhea while on letrozole -Switched letrozole to anastrozole on 01/08/2020 for better symptom toleration -C1D1 palboclclib 125 mg D1-21 q28 D on 01/08/2020 -dose reduction palbo to 100 mg on 02/14/2020 due to neutropaenia -Dose reduction Palko to 75 mg on 04/2020 due to persistent neutropenia's HISTORY OF CURRENT ILLNESS/REVIEW OF SYSTEMS: Patient presents for ongoing follow-up of the above complex medical issues Since last seen,Patient presents for short-term interval follow-up for acute onset back pain. Patient reports that on 05/06/2020 while she was bent over brushing her teeth when coming back upwards she developed acute onset severe lower mid back pain with pain that was so severe that she could not get up right and require to a chair without assistance Since last week she has been taking Advil per package directions which has been helping and she notes that the pain has steadily improved and today minimal 3 out of 10 with no associated lower extremity weakness, no bowel or bladder control issues no increasing numbness or tingling, and today generally feels better She does however report dull aching persistent right sided flank pain although denies any hematuria at this time Patient currently tolerating reduced dose palbociclib currently at 75 mg with no active issues tolerating this No other new constitutional symptoms today Review of systems: A complete review of systems was otherwise negative in detail except per HPI FAMILY/SOCIAL HISTORY: Reviewed per initial consultation note dated 09/11/2019 with no changes today PHYSICAL EXAM: Vital signs: Reviewed per chart GEN: AAOX3, NAD HEENT: EOMI MMM, no thrush LYMPH: No cervical or supraclavicular lymphadenopathy Cards: Regular rate and rhythm Abdomen: Soft nontender nondistended Extremities: No extremity edema noted, No point tenderness to palpation of cervical thoracic lumbar or sacral spine, mild CVA tenderness of left and right spaces Skin: No bruises or rash Neuro: No focal neurological deficits Psych: Appropriately conversant, normal affect LABS: No recent lab work today IMAGING No recent imaging ASSESSMENT/PLAN: 1. Widely metastatic breast cancer with diffuse bony metastases-Patient tolerating treatment well at dose reduction of 75 mg Options would be to continue on current therapy versus switching to abemaciclib which may have a decreased risk of neutropenia however with an increased risk of diarrhea However as patient is currently tolerating regimen well with otherwise no other significant side effects patient would prefer to remain on this therapy at this time -Continue with Ibrance 75 mg daily,, 21 days on Of a 28-day cycle as long as ANC greater than 1000 -Continue anastroze 1 mg daily -Next restaging scan to be done July 2020 2.Toxicity monitoring- -No dose adjustment necessary for grade 1-2 neutropenia (ANC greater than 1000) -If patient with grade 3 toxicity (ANC 500-1000), and no other significant symptoms, recommendations are to continue out to 22 at current dose With repeat CBC on day 22 -If patient with grade 4 toxicity (ANC less than 500 ) Recommendations are to hold palbociclib until ANC improved to grade 2 or better toxicity with recommendations to start next cycle at lower dose 3. Treatment related anemia And neutropenia Resolved to grade 0-0-Pcblqxsmk to Ibrance therapy, Continue with current dose at this time as long as labs in 1 week show grade 2 or better neutropenia -Continue to monitor at this time no indication for transfusion -Discussed options for rotating to abemaciclib as patient has had to hold treatment several times. However, ANC appropriate to continue with palbocyclib at current dosing and patient would prefer to maintain current regimen for now 4. Extensive bony metastatic disease-Previously discussed benefits of Zometa given extensive osseous metastatic disease however patient had concerns over osteonecrosis of the Jaw. -Defer Zometa at this time per patient preference 5. Acute onset back pain-likely musculoskeletal, with muscle spasm given ongoing improvement of pain and lack of point tenderness to palpation along total spine, imaging from 04/08/2020 reviewed in detail with no pathologic fractures although with significant multilevel sclerotic lesions consistent with her known metastatic breast cancer. Clinical exam and symptoms today are not consistent with a pathologic fracture or concerning findings for cord compression -Total spine x-ray to rule out pathologic fracture 6.Subacute renal failure secondary to hydronephrosis from tumor compression- Patient with mild bilateral CVA tenderness, unclear if this is related to her underlying hydronephrosis or her known existing tumors -Recheck creatinine today 7. Treatment related dry eyes-side effects reviewed with 4 to 6% of patients getting blurry vision from palbociclib -Recommended eyedrops to 3-4 times per day -Recommended follow-up with ophthalmology Follow-up , 2 weeks time with MD for ongoing toxicity assessment And review of labs Time spent: 25 minutes of which greater than 50% was spent in patient counseling and care coordination as documented in HPI and assessment and plan Clinical Data: Allergies No Known Drug Allergies Allergy (Verified 05/13/20 15:54) Home Medications Felodipine [Plendil] 10 mg PO DAILY 09/11/12 [History Last Taken 11/11/19] Gabapentin 300 mg PO DAILY 09/22/15 [History Last Taken 11/10/19] Glipizide [Glipizide Xl] 2.5 mg PO BID 09/11/19 [History Last Taken 11/11/19] Prochlorperazine Maleate 10 mg PO Q6HR PRN 09/17/19 [History Last Taken Unknown] ondansetron HCL [Zofran] 8 mg PO BID PRN 09/17/19 [History Last Taken Unknown] Atorvastatin [Lipitor] 10 mg PO DAILY 09/25/19 [History Last Taken 11/11/19] Palbociclib [Ibrance] 100 mg PO DAILY 02/19/20 [History Last Taken Unknown] Palbociclib [Ibrance] 75 mg PO DAILY MDD x 21 days, 7 days off 04/30/20 [History Last Taken Unknown]
== END 2020-05-13 16:16 | disposition home or self-care (01) ==
LOC: DI 16:15
PROVIDERS: ATTEND Internal Medicine
DX: C50.919 Malignant neoplasm of unspecified site of unspecified female breast (principal); C79.51 Secondary malignant neoplasm of bone

== ENCOUNTER 2020-07-09 10:30 | Outpatient (CLI) | payer BC ==
--- NOTE | 2020-07-09 11:20 | CONSULTATION NOTE ---
Palliative Care Follow Up - Referral Referring Provider: Dr. Yair Arias Time of Visit: 1030-11; Record review/labs/scans 15 min Referral setting: [facility] [place] Referral Reason: Pain of neoplastic origin/Recurrent breast CA with pelvic mets - Information Sources Records reviewed: Previous records reviewed History/Review of Systems obtained from: Patient Exam limitations: No limitations - History of Present Illness Update Brief HPI Update: This is a rian 58-year-old woman who has recurrent stage IV breast cancer with mets to the bone and pelvis since 07/2019. She originally presented with increasing creatinine on routine labs, who was sent for renal ultrasound which showed bilateral hydronephrosis and ascites. As CT scan showed a 12 cm complex pelvic mass, moderate ascites at that time. She has since had biopsy, as well as ureteral stents, which she is due to have replaced again in August. She has responded to treatment, with no recent need for paracentesis. She has mild rounding of her abdomen of her abdomen, but soft and no noted tenderness per patient. She does present with mild activity intolerance and shortness of breath with exertion. She has noted progressive fatigue, but still feeling able to tolerate her work schedule and home activities, pacing herself. Patient's last imaging was done on 04/08, that did show extensive bony sclerotic metastatic disease, changes of chronic pancreatitis, and bilateral hydronephrosis. Which of the right kidney was small and shrunken, left kidney was normal size, and at that time he had developed some increased moderate to severe right hydronephrosis, with slight interval decrease in left hydronephrosis but still moderate. 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 In the context of her pain she is having bony pain with up and down her spine and across pelvis and ischium. She has been long-term on gabapentin from her previous treatments residual peripheral neuropathy. Of gabapentin at 300 mg at bedtime. She was noting increased discomfort, and was looking to explore options for pain management. Recommended since she wanted to avoid opioids, pregabalin to be able to titrate quicker, with pregabalin 25 mg in the a.m., she has been taking 50 in p.m., she had not discontinued her gabapentin and but will so at this point in time. Given she did get some relief, and tolerated without increased sedation, we will go ahead and have her take pregabalin 25 mg a.m., 25 noonish, and 50 mg at bedtime and discontinue gabapentin. Her creatinine clearance currently is about 29, which maximizes its out between 150 and 200 mg of pregabalin, she is due to have her stents replaced if she does have improvement, she can have 300 mg with a creatinine clearance of 30 or greater. She feels overall things are going fairly well, her most persistent symptom has been her fatigue, she has noticed changes in doubly mild decline but nothing that has interfered significantly in her quality of life. Though she is having to pace her activities. Her weight is remained stable at home 15, no recent need for paracentesis, and is continuing currently on the Ibrance at reduced dose of 75 mg due to persistent neutropenia, her last white count was 1.7. On 216 her creatinine was 1.8, estimated GFR 29, Social History - Living Situation Living arrangement: At home Living Situation: With spouse/s.o., With family Support System: She lives at home with her , Larry of 26 years. Currently both her daughters are at home providing support, and has been quite limiting as for most families with the pandemic. She is looking forward to being able to go to [place], this is a special place for all of them, she will be going in September for 2 months and is looking forward to this as a short-term goal. Medications/Allergies - Medications Home Medications: Ambulatory Orders Medication Instructions Recorded Confirmed Felodipine [Plendil] 10 mg PO DAILY 09/11/12 07/09/20 Glipizide [Glipizide Xl] 2.5 mg PO BID 09/11/19 07/09/20 Prochlorperazine Maleate 10 mg PO Q6HR PRN 09/17/19 07/09/20 ondansetron HCL [Zofran] 8 mg PO BID PRN 09/17/19 07/09/20 Atorvastatin [Lipitor] 10 mg PO DAILY 09/25/19 07/09/20 Palbociclib [Ibrance] 75 mg PO DAILY MDD x 21 days, 7 04/30/20 07/09/20 days off Anastrozole 1 mg PO DAILY 07/09/20 07/09/20 Pregabalin [Lyrica] 25 mg PO .AM NOON 50MG HS 07/09/20 07/09/20 - Allergies Allergies/Adverse Reactions: Allergies Allergy/AdvReac Type Severity Reaction Status Date / Time No Known Drug Allergies Allergy Verified 06/24/20 15:32 Review of Systems - Constitutional Constitutional: reports: Fatigue (persistent/worsening), Weight stable (115; feels good baseline; regained weight loss). denies: Fever, Chills - Eyes Eyes: reports: Vision loss, Other (having watery eyes result of ibrance) - Cardiovascular Cardiovascular: reports: Lightheadedness, Exertional dyspnea, Decr. exercise tolerance - Respiratory Respiratory: reports: SOB with exertion. denies: Cough, SOB at rest - Gastrointestinal Gastrointestinal: reports: Early satiety. denies: Abdominal pain, Constipation, Diarrhea, Nausea, Reflux/heartburn - Musculoskeletal Musculoskeletal: reports: Back pain, Muscle aches, Stiffness - Psychiatric Psychiatric: denies: Depression, Anxiety - Endocrine Endocrine: reports: Diabetes type 2 (01/25 aic 6.6) - Hematologic/Lymphatic Hematologic/Lymph: reports: Anemia (06/23 9.9 Hbg), Other (WBC 1.7 06/23 no recent infections) - All Other Systems All Other Systems: reports: Reviewed and negative Physical Exam - Vital Signs Pulse Rate: 100 Respiratory Rate: 16 (20 with exertion) Blood Pressure: 107/68 - Physical Exam General Appearance: positive: No acute distress, Alert Eyes Bilateral: positive: Normal inspection, No scleral icterus ENT: positive: No signs of dehydration Neck: positive: Trachea midline Cardiovascular: positive: Regular rate & rhythm, Tachycardia Respiratory: positive: Diminished in bases. negative: No respiratory distress (breathlessness with activity), Wheezes Abdomen: positive: Non-tender, Other (rounded) Skin: positive: Dryness Extremities: positive: Pedal edema (trace) Neurologic/Psychiatric: positive: Oriented x3, Mood/affect nml Palliative Care - POLST Patient has POLST: No POLST Status: Full Code Pain: Pain improved, Location (across back and buttocks; discomfort with LE edema), Severity (2/10), Comment (worse in AM on awakening; started pregabalin 25 mg AM, 50 mg at HS; inst. to stop gabapentin) Tiredness/Fatigue: Mild (1-3) Drowsiness/Sedation: None Nausea: None Anorexia: None Dyspnea: Mild (1-3) Depression: None Anxiety: None Feelings of wellbeing/Perceived Quality of Life: Good, Acceptable, Comment (noti ng changes but not acute) Sleep: Sleeps well Constipation: No Performance Status: Patient has noted slight functional decline, with decreased activity tolerance and persistent fatigue. She is independent in her ADLs, she is a ECOG 1. - Palliative Care Discussion: Palliative care has not seen patient since December, she has continued to work. She feels like she is doing fairly well overall given her current situation. I would agree. She does not appear depressed or anxious, did explore some anticipatory guidance questions, she has scans pending, and due for stent exchange. I suspect we will have more information to be able to answer some of her questions regarding anticipatory guidance and prognosis. Her tumor markers are staying fairly stable, she is not needed recurrent paracentesis, her nutritional status is good, no acute hospitalizations or infections. 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 She is currently receiving Ibrance and anastrozole, her disease has been fairly stable. She was having exacerbation or bone pain, have trialed pregabalin with positive response. Palliative care to provide support regarding symptom management as well as anticipatory guidance. Recommendations/Counseling Done: 1. Pain of neoplastic origin. Patient presents with multifactorial pain, attributed mostly to bone mets and peripheral neuropathy. Have transitioned and will continue to follow transition over to pregabalin, dosing 25 mg a.m., 25 mg noonish, 50 mg at bedtime. Cannot titrate up some, but will be limited by her creatinine clearance. She is due to have her stents replaced, this may improve and can titrate that up to 300 mg with a creatinine clearance of 30-60. Counseling provided regarding other options including opioids, patient like to hold off, but did discuss would be an option for a multimodal approach if needed in the future. 2. Fatigue. This is multifactorial, patient is pacing activities, adapting her work schedule, and staying active in the context of her activity tolerance and tachycardia. Reviewed patient's nutrition and intake, patient has remained weight stable. Did introduce possibility of Ritalin at low doses if needed to counter balance, particularly if develops side effects of sedation from medications. 3. Recurrent metastatic breast CA with pelvic and bone mets. Patient due for restaging scans in the near future, as well as stent replacement. Counseling provided regarding some anticipatory guidance regarding natural progression of disease. Patient is doing quite well currently, and responding with stable tumor markers. Continuing of course to hope for the best, will be available if needs further support for decline. 4. Advanced care planning. Will let patient pace her comfort level regarding further exploration of advanced care planning documents and planning. Patient is very much looking forward to her short-term goal of going [place] in September, recognizing this will be an important trip. 45 minutes total, with review of records, labs, scans, counseling provided regarding pain and symptom management, coordination of care with oncology team. We will continue to check in with patient and titrate pain medications accordingly, and continue to offer support as patient accepts
== END 2020-07-09 10:31 | disposition home or self-care (01) ==
LOC: PC 10:30
PROVIDERS: ATTEND Nurse Practitioner Adult Health
DX: Z51.5 Encounter for palliative care (principal); G89.3 Neoplasm related pain (acute) (chronic); R53.83 Other fatigue; C50.919 Malignant neoplasm of unspecified site of unspecified female breast; C79.51 Secondary malignant neoplasm of bone; C79.89 Secondary malignant neoplasm of other specified sites; Z79.899 Other long term (current) drug therapy
CPT/HCPCS: 99215

== ENCOUNTER 2020-07-23 12:04 | Outpatient (CLI) | payer BC ==
[2020-07-23 12:13] LABS: INR 1.1 (0.8-1.2); PT - PROTHROMBIN TIME 12.1 secs (9.9-12.6)
[2020-07-23 12:20] LABS: PARTIAL THROMBOPLASTIN TIME 34.8 secs (24.9-33.3)
--- NOTE | 2020-07-23 14:56 | Ultrasound Report ---
PROCEDURE: Abdomen Limited INDICATIONS: Ascites TECHNIQUE: Real-time focused scanning was performed of the abdomen, with image documentation. COMPARISON: 04/08/2020 FINDINGS: Small volume ascites in all four quadrants. IMPRESSION: Small volume ascites. Paracentesis was discussed with the patient and determined to be of little clin ical benefit given the small volume. Reviewed by: Tylor Arredondo MD on 07/23/2020 2:55 PM PDT Approved by: Tylor Arredondo MD on 07/23/2020 2:55 PM PDT Station ID: [id number]
== END 2020-07-23 12:05 | disposition home or self-care (01) ==
LOC: DI 12:04
PROVIDERS: ATTEND Internal Medicine
DX: R18.8 Other ascites (principal); Z85.3 Personal history of malignant neoplasm of breast; C79.89 Secondary malignant neoplasm of other specified sites; C79.51 Secondary malignant neoplasm of bone; N19 Unspecified kidney failure
CPT/HCPCS: 36415; 85610; 85730

== ENCOUNTER 2020-07-29 08:04 | Outpatient (CLI) | payer BC ==
[2020-07-29] MEDS ORDERED: IOPAMIDOL-300 50 ML VIAL ONE (08:20)
[2020-07-29] MEDS ORDERED: IOVERSOL 320 100 ML VIAL IVP ONE (08:21)
[2020-07-29 08:52] LABS: CREATININE 1.8 mg/dL (0.4-1.0)
--- NOTE | 2020-07-29 15:36 | CT Report ---
PROCEDURE: CHEST WO INDICATIONS: Breast CA TECHNIQUE: Noncontrast 5 mm thick sections acquired from the pulmonary apices to the posterior costophrenic angl es. 7 mm thick coronal and sagittal MIP reformats were then acquired. For radiation dose reduction, the following was used: automated exposure control, adjustment of mA and/or kV according to patient size. COMPARISON: 04/08/2020 and 12/03/[address] scanning. FINDINGS: Image quality: Excellent. Lungs and pleura: No acute air space opacities. No pleural effusions or pneumothorax. Central and peripheral airways are patent and normal in caliber. There is a calcified granuloma at the left lowe r lobe Mediastinum: Heart size is normal. No pericardial effusion. No mediastinal adenopathy by size crit eria. Thoracic aorta and central pulmonary arteries are normal in size. Esophagus is normal in kymberly chetan. No hiatal hernia. Bones and chest wall: Diffusely osteosclerotic bone lesions, previously present.. No vertebral body compression fractures. No axillary or supraclavicular adenopathy by size criteria. The thyroid is n ot well seen by this noncontrast technique. Note is made of a Port-A-Cath with tip in normal position from left-sided approach. Abdomen: Visualized upper abdominal solid organs and bowel loops appear normal in the absence of con trast except at the kidneys where there appears to be a greater degree of right renal cortical atroph y and a mild interval increase in previously present hydronephrosis on the left.. Also, a mild but d efinite interval increase in ascites is noted within the perihepatic space. Calcific pancreatitis is again noted. IMPRESSION: Metastatic disease involving the osseous elements of the axial and appendicular skeleton are again no indra, osteoblastic. Note also is made of a mild interval increase in upper abdominal ascites, etiology uncertain. Note is made of mild worsening of renal cortical atrophy on the right and interval development of a m oderate degree of left-sided hydronephrosis which was not present to the same degree on prior CT scan radha from 04/08/2020. Ureteral stents are not seen bilaterally within the small portion of the collect ing system on this study. They are present below the field of view for scanning on the scanogram equi valent of abdomen plain film imaging bilaterally. Malfunction of the left ureteral stent is suspected . Reviewed by: Alirio Harkins MD on 07/29/2020 3:35 PM PDT Approved by: Alirio Harkins MD on 07/29/2020 3:35 PM PDT Station ID: [id number]
--- NOTE | 2020-07-30 10:09 | CT Report ---
PROCEDURE: Abdomen/Pelvis WO INDICATIONS: Breast CA TECHNIQUE: Noncontrast 5 mm thick sections acquired from the diaphragms to the symphysis. 5 mm coronal and sagi ttal reformats were then performed. For radiation dose reduction, the following was used: automated exposure control, adjustment of mA and/or kV according to patient size. Oral contrast was utilized, intravenous contrast was not administered. COMPARISON: 07/23/2020 ultrasound abdomen, chest CT 07/29/2020 also reviewed. Prior abdomen/pelvis CT 04/08/2020 reviewed.. FINDINGS: Image quality: Excellent. ABDOMEN: Lung bases: Lung bases are clear. Heart size is normal. Solid organs: Liver and spleen are normal in size and given absence of intravenous contrast no focal liver or splenic lesion is seen. Perisplenic and perihepatic ascites is moderately increased, previo usly measuring 7 mm in thickness along the hepatic border anteriorly in April of last year, and no w measuring up to 1.8 cm.. Gallbladder has been previously resected. Pancreas is stable in contours and scattered calcifications consistent with chronic calcific pancreatitis.. No adrenal nodules. K idneys are normal in size, without nephrolithiasis. During CT scanning 04/08/2020 bilateral ureteral stents were present in the degree of right-sided hydr onephrosis has improved with the mid renal pelvis previously having measured up to 3.3 cm in maximal transverse dimension and currently measuring up to 2.2 cm. At the left kidney is a maximal AP and tra nsverse dimension of hydronephrosis is 4.4 x 5.6 cm, and at a comparable area this previously in [facility] of last year had measured 3.3 x 4.5 cm. Peritoneum and bowel: Unenhanced bowel loops demonstrate normal wall thickness and caliber. No free fluid or air. Nodes and vessels: No retroperitoneal or mesenteric adenopathy by size criteria. Aorta and inferior vena cava are normal in caliber. Miscellaneous: No ventral hernias. PELVIS: Genitourinary: Bladder wall thickness is normal. Note is made of a lobulated enlarged structure wit hin the midline of the lower pelvis most likely multiple uterine fibroids enlarging the uterus and di splacing the ureters peripherally, bilaterally, without appreciable change from April last . Miscellaneous: No inguinal hernias or adenopathy. Bones: No new suspicious bony lesions in this patient with previously documented extensive osteoblas tic metastatic disease. No pathologic fracture found.. No vertebral body compression fractures. IMPRESSION: 1. Interval increase in amount of ascites in the perihepatic space and to a lesser degree within the abdomen and pelvis more inferiorly. The amount of current ascites is small to moderate. 2. Improvement in hydronephrosis at the right kidney but worsening of hydronephrosis at the left kidn ey in this patient with stable appearing bilateral ureteral stents. The right kidney is relatively at rophic when compared to that on the left and therefore this finding is of potential significance for subsequent loss of renal function on the left. Consideration of stent malfunction is recommended for the left-sided ureteral stent. Replacement may be warranted. 3. Osteoblastic metastatic disease is prominent in this patient but stable over time from prior CT sc anning. 4. What is presumed to be the uterus is enlarged by a lobulated masses, which deviates the ureters an d ureteral stents peripherally, bilaterally, stable over time from prior April 2020 CT scanning. P resumed multiple uterine fibroids. An alternative etiology for presence of bilateral hydronephrosis p reviously documented is not found. Reviewed by: Alirio Harkins MD on 07/30/2020 10:08 AM PDT Approved by: Alirio Harkins MD on 07/30/2020 10:08 AM PDT Station ID: [id number]
== END 2020-07-29 08:05 | disposition home or self-care (01) ==
LOC: DI 08:04
PROVIDERS: ATTEND Internal Medicine
DX: C50.919 Malignant neoplasm of unspecified site of unspecified female breast (principal); C78.6 Secondary malignant neoplasm of retroperitoneum and peritoneum; C79.51 Secondary malignant neoplasm of bone; R18.8 Other ascites; N26.1 Atrophy of kidney (terminal); N13.30 Unspecified hydronephrosis; Z96.0 Presence of urogenital implants
CPT/HCPCS: 36415; 71250; 74176; 82565; Q9967

== ENCOUNTER 2020-08-16 08:00 | Outpatient (CLI) | payer BC | END 2020-08-16 23:59 | disposition home or self-care (01) | LOC: LAB 08:00 | PROVIDERS: ATTEND Urology | DX: N13.5 Crossing vessel and stricture of ureter without hydronephrosis (principal); Z20.822 Contact with and (suspected) exposure to COVID-19 ==

== ENCOUNTER 2020-08-27 08:10 | Outpatient (CLI) | payer BC ==
[2020-08-27 08:53] LABS: CHOLESTEROL 180 mg/dL; HDL CHOLESTEROL 61 mg/dL; LDL CHOLESTEROL,CALCULATED 99 mg/dL; LDL/HDL RATIO 1.6 (<4.4); TRIGLYCERIDES 102 mg/dL; VLDL CHOLESTEROL 20 mg/dL
[2020-08-27 10:34] LABS: ESTIMATED AVERAGE GLUCOSE 140 mg/dL (70-100); HEMOGLOBIN A1c% 6.5 % (4.27-6.07)
== END 2020-08-27 08:11 | disposition home or self-care (01) ==
LOC: LAB 08:10
PROVIDERS: ATTEND Physician Assistant Medical
DX: E11.9 Type 2 diabetes mellitus without complications (principal)
CPT/HCPCS: 36415; 80061; 83036; 83721

== ENCOUNTER 2020-08-27 10:21 | Outpatient (CLI) | payer BC ==
--- NOTE | 2020-08-27 12:17 | CONSULTATION NOTE ---
Palliative Care Follow Up - Referral Referring Provider: Dr. Yair Arias Time of Visit: 1030 45 minutes total Referral setting: [facility] [place] Reason: Pain of neoplastic origin/Recurrent Breast CA with pelvic /bone mets - Information Sources Records reviewed: Previous records reviewed History/Review of Systems obtained from: Patient Exam limitations: No limitations - History of Present Illness Update Brief HPI Update: This is a rian 59-year-old woman who has recurrent stage IV breast cancer with mets to the bone and pelvis, since 07/2019. She is complaining of worsening abdominal pressure, known carcinomatosis, but on CT scan 07/29/2020 shows a small amount of ascites in the perihepatic space and lesser within abdominal and pelvis, but is judged to be small to moderate without any indication for paracentesis. She recently had her ureteral stents replaced, this is related to hydronephrosis, which had increased in the left kidney, with some mild improvement in the right. 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 She has been on Ibrance, at this point in time has had progression of disease. She is going to [place] for a couple months, with plan to rotate back to [facility] when she returns. She will continue on the Letrozole 2.5 mg, her pain medication, and focus on time with her family. Patient's current regimen is pregabalin 75 mg 3 times daily, she has been holding the middle dose in hopes to not need a refill over in [place]. We did discuss ways to supplement this as well as could have Dr. Nolasco write for the prescription for [facility] if needed. We also discussed adding some oxycodone 5 mg 1 every 4 hours for worsening or uncontrolled pain while she is there. As well as importance of continuing with soft regular bowel movements daily, given her "crowding" and abdominal pressure. She does have early satiety, no nausea, and some persistent fatigue. Past Medical History: History of stage IIIb left breast cancer IDC, bilateral mastectomy with left axillary lymph node dissection with adjuvant chemotherapy,Diabetes type 2 on glipizide, hydronephrosis with stent placement, and pancytopenia secondary to Ibrance. Social History - Living Situation Living arrangement: At home Living Situation: With spouse/s.o., With family Support System: Patient lives with her rian Larry they have been for 27 years, they have 2 daughters. Afsaneh is still trying to work, she will do some work from [place]. Her daughters will be joining them for a week for vacation. She is looking forward to making memories, and celebrating her birthday Medications/Allergies - Medications Home Medications: Ambulatory Orders Medication Instructions Recorded Confirmed Felodipine [Plendil] 10 mg PO DAILY 09/11/12 08/27/20 Glipizide [Glipizide Xl] 2.5 mg PO DAILY 09/11/19 08/27/20 Prochlorperazine Maleate 10 mg PO Q6HR PRN 09/17/19 08/27/20 ondansetron HCL [Zofran] 8 mg PO BID PRN 09/17/19 08/27/20 Atorvastatin [Lipitor] 10 mg PO DAILY 09/25/19 08/27/20 Pregabalin [Lyrica] 75 mg PO TID 07/09/20 08/27/20 Letrozole 2.5 mg PO DAILY 08/27/20 08/27/20 Oxycodone HCl [Roxicodone] 5 mg PO Q4HR PRN 08/27/20 08/27/20 polyethylene glycoL 3350 [Miralax] 17 gm PO DAILY PRN 08/27/20 08/27/20 - Allergies Allergies/Adverse Reactions: Allergies Allergy/AdvReac Type Severity Reaction Status Date / Time No Known Drug Allergies Allergy Verified 08/05/20 13:09 Review of Systems - Constitutional Constitutional: reports: Fatigue (persistent). denies: Fever, Chills - Eyes Eyes: reports: Vision loss - Cardiovascular Cardiovascular: reports: Exertional dyspnea, Decr. exercise tolerance - Respiratory Respiratory: reports: SOB with exertion. denies: Cough, SOB at rest - Gastrointestinal Gastrointestinal: reports: Bloating, Early satiety. denies: Abdominal pain, Constipation, Diarrhea, Nausea, Reflux/heartburn - Musculoskeletal Musculoskeletal: reports: Back pain, Muscle aches, Stiffness - Integumentary Integumentary: reports: Dryness - Neurological Neurological: reports: General weakness - Endocrine Endocrine: reports: Diabetes type 2 (08/27 aic 6.6) - Hematologic/Lymphatic Hematologic/Lymph: reports: Anemia (06/23 9.5 Hbg), Other - All Other Systems All Other Systems: reports: Reviewed and negative Physical Exam - Vital Signs Respiratory Rate: 73 Blood Pressure: 115/74 - Physical Exam General Appearance: positive: No acute distress, Alert Eyes Bilateral: positive: Normal inspection, No scleral icterus ENT: positive: No signs of dehydration Neck: positive: Trachea midline Cardiovascular: positive: Regular rate & rhythm Respiratory: positive: Diminished in bases. negative: No respiratory distress (breathlessness with activity), Wheezes Abdomen: positive: Non-tender, Soft, Other (rounded) Skin: positive: Dryness Extremities: positive: Pedal edema (trace) Neurologic/Psychiatric: positive: Oriented x3, Mood/affect nml Palliative Care - POLST Patient has POLST: No Pain: Pain unchanged, Location (right scapula/spinal colum; across lower back) Tiredness/Fatigue: Moderate (4-6) Drowsiness/Sedation: Mild (1-3) Nausea: None Anorexia: None Dyspnea: Mild (1-3) Depression: Mild (1-3) Anxiety: None Feelings of wellbeing/Perceived Quality of Life: Good, Acceptable Sleep: Sleeps well Constipation: Yes, Managed Performance Status: Patient does have activity tolerance with increased shortness of breath but is still managing her ADLs, able to work modified schedule. She is looking forward to [place], being able to be in the pool and relax. - Palliative Care Discussion: Discussion regarding pending trip, wanting to celebrate her birthday with her family, making memories. Continues to have appropriate anxiety regarding living with serious illness, discussed different concepts regarding anticipatory guidance. Psychosocial support provided, encouraged to continue with practical end-of-life planning, and continuing to hope for the best. She feels her family is quite supportive, at this point time does not need further support or intervention. Results - Lab Results Lab results reviewed: Yes Lab and Imaging Results: Potassium 4.7, BUN 28, 1.5 creatinine, GFR 36, is her labs from 08/03; WBC 2.6, hemoglobin 9.5, hematocrit 29.7, CA 15-3 75 Impression and Recommendations - Palliative Care Impression: This is a rian 59-year-old woman with recurrent stage IV lobular breast cancer with mets to the bone and pelvic mass since 07/2019. She is currently only on the leterozole 2.5 mg, she is off ibrance related to recent progression. She is expecting to restart treatment on her return from her vacation, she is currently managed on pregabalin 75 mg 3 times daily for her bone pain. Palliative care to provide support regarding symptom management and anticipatory guidance. Recommendations/Counseling Done: 1. Pain of neoplastic origin. Patient presents with multifactorial pain, attributed mostly to bone mets and peripheral neuropathy. She is currently on pregabalin 75 mg 3 times daily, she has had her stents replaced, this may improve her creatinine clearance. We can take titrate up to 300 mg with a creatinine clearance of 30-60. Counseling provided regarding supplementation with opioids, oxycodone 5 mg 1 tab every 4 hours ordered. Provided instruction on a multimodal approach, bowel program if initiates oxycodone to increase MiraLAX. 2. Fatigue. This is multifactorial, patient is pacing activities, continued after work schedule. Patient's has remained somewhat stable as far as weight. We will continue to monitor. She is feeling somewhat better off the Ibrance with some increase in energy and overall sense of wellbeing. 3. Recurrent metastatic breast cancer with pelvic and bone mets. Patient did have her stents replaced, did have restaging scans with no significant worsening of visceral disease, but increased ascites and worsening tumor markers concern for possible progression. Patient is weighing benefits and burdens of treatment options, will finalize decision when she returns. 4. Advanced care planning. Continuing let patient pace with her comfort level regarding exploration of end-of-life planning. Conversation regarding tasks still needed to be completed, as well as feelings in the context of her decline in the future. 45 minutes with chart review, review of labs, review of scans, review of ureteral stent replacement notes, oncology notes [id number] with counseling regarding pain and symptom management.
== END 2020-08-27 10:22 | disposition home or self-care (01) ==
LOC: PC 10:21
PROVIDERS: ATTEND Nurse Practitioner Adult Health
DX: Z51.5 Encounter for palliative care (principal); G89.3 Neoplasm related pain (acute) (chronic); C50.919 Malignant neoplasm of unspecified site of unspecified female breast; C79.51 Secondary malignant neoplasm of bone; C79.89 Secondary malignant neoplasm of other specified sites; R53.83 Other fatigue; E11.9 Type 2 diabetes mellitus without complications; D61.810 Antineoplastic chemotherapy induced pancytopenia; T45.1X5A Adverse effect of antineoplastic and immunosuppressive drugs, initial encounter; Z79.899 Other long term (current) drug therapy; Z96.0 Presence of urogenital implants; Z79.84 Long term (current) use of oral hypoglycemic drugs
CPT/HCPCS: 99215

== ENCOUNTER 2020-11-05 09:07 | Outpatient (CLI) | payer BC ==
--- NOTE | 2020-11-05 16:09 | Ultrasound Report ---
PROCEDURE: Abdominal Paracentesis INDICATIONS: ASCITES TECHNIQUE: The indications, alternatives, benefits, risks, and complications of the procedure were explained to the patient. Written informed consent was obtained and placed in the chart. The abdomen and pelvis were examined sonographically, and an appropriate site was chosen for paracentesis. The skin was pre pared and draped in the usual sterile fashion, and 1% lidocaine was infiltrated from the skin down th rough the peritoneal surface. A 19-gauge catheter-covered needle was then introduced into the perito karla space, the catheter was advanced and the needle was withdrawn, and thereafter peritoneal fluid w as withdrawn. The catheter was then removed and a dressing was applied. The fluid was discarded if the clinician did not order diagnostic testing of the fluid. COMPARISON: None FINDINGS: Access site: Right lower quadrant Needle: One-Step centesis catheter with introducer needle. Fluid volume and description: 5.1 L of clear yellowish ascites. Fluid sent for diagnostic testing: Requested Medications: 1% lidocaine for local anaesthesia. Complications: None. IMPRESSION: Successful ultrasound-guided paracentesis. Reviewed by: Elisa Christopher MD, PhD on 11/05/2020 4:07 PM PDT Approved by: Elisa Christopher MD, PhD on 11/05/2020 4:07 PM PDT Station ID: [id number]
== END 2020-11-05 09:08 | disposition home or self-care (01) ==
LOC: DI 09:07
PROVIDERS: ATTEND Internal Medicine
DX: R18.8 Other ascites (principal); Z85.3 Personal history of malignant neoplasm of breast; C79.89 Secondary malignant neoplasm of other specified sites; C79.51 Secondary malignant neoplasm of bone; N19 Unspecified kidney failure
CPT/HCPCS: 49083

== ENCOUNTER 2020-11-12 09:13 | Outpatient (CLI) | payer BC ==
--- NOTE | 2020-11-12 13:03 | CONSULTATION NOTE ---
Palliative Care Follow Up - Referral Referring Provider: Dr. Yair Arias Time of Visit: 0930 60 minutes Referral setting: [facility] Referral Reason: Pain of neoplastic origin/CIPN/Met Breast CA - Information Sources Records reviewed: RN notes reviewed, Previous records reviewed History/Review of Systems obtained from: Patient, Family (Larry ) Exam limitations: No limitations - History of Present Illness Update Brief HPI Update: This is a rian 60-year-old woman who has recurrent stage IV breast cancer with mets to the bone and pelvis, since 07/2019. She is recently been off treatment for the last 2 months, to be able to enjoy her trip to [place]. Unfortunately she required 2 paracentesis while she was there, and another 1 on arrival back for 5.1 L. She does appear to be reaccumulating fairly quickly again, who she reports it has been more taut, but is with distention and discomfort. She has had a fairly dramatic increase in her tumor markers, though this would be expected being of treatment, and has met with the oncologist. The plan is to revisit Doxil, with the hope to decrease her tumor burden and improve her ascites. She will continue her letrozole, her next paracentesis is planned for 719, and she continues with compromised renal status related to her hydronephrosis. She does have a pending abdominal CT scan for baseline restaging, but because of her renal status is unable to do it with contrast. This is scheduled for tomorrow. Patient does have persistent peripheral neuropathy, pain radiating across her pelvis and spine as well as her lower scapular area. She was actually much more comfortable when she was snorkeling and able to be going into the water. She had been able to decrease her pregabalin to 75 mg twice daily, and did not need to in use any oxycodone. She continues to struggle with constipation, but is titrating her medications. She does appear to have had some more muscle wasting in appearance, but does appear quite vibrant. She is here with her , both acknowledging coming back to reality and just though weight of dealing with serious illness and the unknown. Past Medical History: History of stage IIIb left cancer, IDC, bilateral mastectomy left axillary lymph node dissection with adjuvant chemotherapy, diabetes type 2 on glipizide, hydronephrosis with stent placement, recurrent ascites. Social History - Living Situation Living arrangement: At home Living Situation: With spouse/s.o., With family Support System: Patient lives with her rian Larry, they have been for 27 years, have 2 daughters who are living at home. They very much appreciated their time in [place], and their daughters joined them at one point. Afsaneh is continue to work [employer], few days a week. Larry's work is accommodating so he can spend time supporting Afsaneh in her treatment, as well as being able to vacation. Medications/Allergies - Medications Home Medications: Ambulatory Orders Medication Instructions Recorded Confirmed Felodipine [Plendil] 10 mg PO DAILY 09/11/12 11/04/20 Glipizide [Glipizide Xl] 2.5 mg PO DAILY 09/11/19 11/04/20 Prochlorperazine Maleate 10 mg PO Q6HR PRN 09/17/19 11/04/20 ondansetron HCL [Zofran] 8 mg PO BID PRN 09/17/19 11/04/20 Atorvastatin [Lipitor] 10 mg PO DAILY 09/25/19 11/04/20 Pregabalin [Lyrica] 75 mg PO TID 07/09/20 11/04/20 Letrozole 2.5 mg PO DAILY 08/27/20 11/04/20 Oxycodone HCl [Roxicodone] 5 mg PO Q4HR PRN 08/27/20 11/04/20 polyethylene glycoL 3350 [Miralax] 17 gm PO DAILY PRN 08/27/20 11/04/20 - Allergies Allergies/Adverse Reactions: Allergies Allergy/AdvReac Type Severity Reaction Status Date / Time No Known Drug Allergies Allergy Verified 11/04/20 10:12 Review of Systems - Constitutional Constitutional: reports: Fatigue, Weight gain (from fluid) - Eyes Eyes: reports: Vision loss - Ears, Nose & Throat Ears, Nose & Throat: reports: Hearing loss, Hearing aids - Cardiovascular Cardiovascular: reports: Exertional dyspnea, Decr. exercise tolerance - Respiratory Respiratory: reports: Cough (dry and more pronounced; attributes it to increased abdominal pressure), SOB with exertion. denies: Wheezing, SOB at rest - Gastrointestinal Gastrointestinal: reports: Abdominal distention, Constipation, Bloating, Early satiety, Other (requiring paracentesis again). denies: Reflux/heartburn - Genitourinary Genitourinary: reports: Incontinence (with abdominal pressure) - Musculoskeletal Musculoskeletal: reports: Back pain, Muscle aches, Stiffness - Integumentary Integumentary: reports: Dryness - Neurological Neurological: reports: General weakness - Endocrine Endocrine: reports: Diabetes type 2 (08/27 aic 6.6) - Hematologic/Lymphatic Hematologic/Lymph: reports: Anemia (10.9) - All Other Systems All Other Systems: reports: Reviewed and negative Physical Exam - Vital Signs Pulse Rate: 59 Respiratory Rate: 18 Blood Pressure: 110/58 - Physical Exam General Appearance: positive: Alert, Mild distress Eyes Bilateral: positive: Normal inspection ENT: positive: No signs of dehydration Neck: positive: Trachea midline Cardiovascular: positive: Regular rate & rhythm Respiratory: positive: Diminished in bases, Other (noted dry cough). negative: Wheezes, Rales, Rhonchi Abdomen: positive: Tenderness, Taut Skin: positive: Dryness Extremities: positive: Pedal edema (taut pedal edema up to knees) Neurologic/Psychiatric: positive: Oriented x3, Mood/affect nml Palliative Care - POLST Patient has POLST: No POLST Status: Full Code Pain: Pain unchanged, Pain improved (during vacation with buoyancy;), Location (see HPI), Severity (2/10) Tiredness/Fatigue: Mild (1-3) Drowsiness/Sedation: None Nausea: None Anorexia: Mild (1-3) Dyspnea: Mild (1-3) Depression: None Anxiety: None Feelings of wellbeing/Perceived Quality of Life: Good, Acceptable Sleep: Sleeps well Constipation: Yes, Intermittent constipation - Palliative Care Discussion: Both and patient reflective of trip, recognizing it was a nice break, but also just the overshadowing of her serious illness with her recurrence of her ascites. Very difficult to "ignore". They have met with oncology, hopeful for response to the treatment, both for quality and quantity of life. Both are feeling more vulnerable as this feels more realistic in the context of goal of treatment is palliative. Discussion regarding this, impact of grief and depressive feelings, as well as reflection on their relationship and supportive each other. They are getting some support further daughters through grief counseling, and wanting them to take care of themselves as well. Just acknowledged the difficulty of being in "the twilight zone" with many unknowns but aware of seriousness of her illness and current condition. Results - Lab Results Lab results reviewed: Yes Impression and Recommendations - Palliative Care Impression: This is a rian 60-year-old woman with recurrent stage IV lobular breast cancer, with mets to the bone and pelvic mass since 07/2019. She is currently restarting Doxil, and continuing letrozole 2.5 mg daily. She is managing her pain on pregabalin 75 mg twice daily, but unfortunately is having recurrent ascites. Palliative care to provide support regarding symptom management, psychosocial support, and anticipatory guidance. Recommendations/Counseling Done: 1. Pain of neoplastic origin. Patient presents with multifactorial pain, a ttributed mostly to bone mets and peripheral neuropathy. She was able to decrease her pregabalin to twice daily when on vacation, secondary to the time spent in the water and buoyancy. Counseling provided May need to increase to 75 mg 3 times daily again, will go ahead and order new prescription to accommodate this. 2. Recurrent metastatic breast cancer with pelvic and bone mets. Patient is d ue for restaging scans tomorrow, unfortunately given her kidney function unable to use contrast. She does have worsening tumor markers, and concern regarding recurrent ascites. Patient is not scheduled for tap until 11/23, she does appear quite uncomfortable, recommended she reach out if she would like this scheduled elsewhere. [facility] cannot accommodate until then. Patient continues weig h benefits and burdens of treatment options, will be starting Doxil today, she is familiar with this medication and side effects. 3. Grief. Provided support for her and patient given the seriousness of her illness, and worsening of disease. Provided active listening, and support for struggles with the implications and ramifications of their current situation. They do have a very close family, and patient very dependent on each other, have supportive community, encouraged to continue to find ways to stay in the moment and access support. 4. Advanced care planning. We will continue outpatient and pace with her comfort level regarding exploration of planning into the future. They do feel very good about the trip they had, patient continues to weigh in the cont ext of quality of life benefits and burdens of treatment decisions and supportive care. 60 minutes with review of oncology notes, labs, imaging, [id number] with review and counseling regarding symptoms, psychosocial support, and anticipatory guidance
== END 2020-11-12 09:14 | disposition home or self-care (01) ==
LOC: PC 09:13
PROVIDERS: ATTEND Nurse Practitioner Adult Health
DX: Z51.5 Encounter for palliative care (principal); G89.3 Neoplasm related pain (acute) (chronic); C50.919 Malignant neoplasm of unspecified site of unspecified female breast; C79.51 Secondary malignant neoplasm of bone; C79.89 Secondary malignant neoplasm of other specified sites; F43.21 Adjustment disorder with depressed mood; E11.42 Type 2 diabetes mellitus with diabetic polyneuropathy; Z79.84 Long term (current) use of oral hypoglycemic drugs
CPT/HCPCS: 99215; 99417

== ENCOUNTER 2020-11-13 12:49 | Outpatient (CLI) | payer BC ==
--- NOTE | 2020-11-13 14:03 | CT Report ---
PROCEDURE: CHEST WO INDICATIONS: BONE CA TECHNIQUE: Noncontrast 5 mm thick sections acquired from the pulmonary apices to the posterior costophrenic angl es. 7 mm thick coronal and sagittal MIP reformats were then acquired. For radiation dose reduction, the following was used: automated exposure control, adjustment of mA and/or kV according to patient size. COMPARISON: FINDINGS: Image quality: Excellent. Lungs and pleura: No acute air space opacities. No pleural effusions or pneumothorax. Central and peripheral airways are patent and normal in caliber. There is pleural scarring of the left upper lob e anteriorly. There is a calcified granuloma in the left lower lobe. Mediastinum: Heart size is normal. No pericardial effusion. No mediastinal adenopathy by size crit eria. Thoracic aorta and central pulmonary arteries are normal in size. Esophagus is normal in kymberly chetan. No hiatal hernia. Bones and chest wall: Diffuse osteosclerotic bone lesions are unchanged compared to the prior CT. No vertebral body compression fracture. No axillary or supraclavicular adenopathy by size criteria. The thyroid gland is normal. There is a left chest wall Port-A-Cath. Abdomen: A large amount of ascites is present. The liver and spleen have a grossly normal appearance. The left kidney is partially visualized and demonstrates hydronephrosis. IMPRESSION: 1. Sclerotic osteoblastic metastatic disease to the visualized bones including the spine, ribs, and s ternum; unchanged compared to prior CT on 07/29/2020. 2. No interval development of mass or adenopathy. 3. Ascites and left hydronephrosis. Please see separately dictated CT of the abdomen and pelvis. Reviewed by: Eduardo Reilly on 11/13/2020 2:01 PM PDT Approved by: Eduardo Reilly on 11/13/2020 2:01 PM PDT Station ID: [id number]
--- NOTE | 2020-11-13 14:48 | CT Report ---
PROCEDURE: Abdomen/Pelvis WO INDICATIONS: BONE CA TECHNIQUE: Noncontrast 5 mm thick sections acquired from the diaphragms to the symphysis. 5 mm coronal and sagi ttal reformats were then performed. For radiation dose reduction, the following was used: automated exposure control, adjustment of mA and/or kV according to patient size. COMPARISON: CT abdomen and pelvis without contrast, 07/29/2020. CT chest without contrast and CT abdo men and pelvis without contrast the chest without contrast and, 04/08/2020. FINDINGS: Image quality: Excellent. ABDOMEN: Lung bases: Lung bases are clear. Heart size is normal. Small hiatal hernia. Solid organs: Liver and spleen are normal in size. Gallbladder is surgically absent. Punctate calci fication of pancreas consistent with chronic pancreatitis. No adrenal nodules. The right kidney is severely atrophic. There is moderate left hydronephrosis and mild right hydroneph rosis. Ureteral stents are present bilaterally. No nephrolithiasis. Peritoneum and bowel: There is a large amount of ascites, increased compared to the last exam. Unenh anced bowel loops demonstrate normal wall thickness and caliber. No free air. Nodes and vessels: CT chest without contrast, 04/08/2020. No retroperitoneal or mesenteric adenopath y by size criteria. Aorta and inferior vena cava are normal in caliber. Miscellaneous: No ventral hernias. PELVIS: Genitourinary: Bladder wall thickness is normal. There is a large conglomerate pelvic mass measurin g 9.4 cm AP, 10.0 cm transverse and 1.7 cm cephalocaudal, not significantly changed in size when comp ared to the last exam. Miscellaneous: No inguinal hernias or adenopathy. Bones: Diffuse sclerotic bone lesions consistent with extensive osseous metastasis. Overall, there is no significant change. No pathological vertebral body compression fractures. IMPRESSION: 1. There is a large amount of ascites, increased compared with the last exam. 2. A large conglomerate pelvic mass, not significantly changed in size since the last exam. 3. Extensive lytic osseous metastases. 4. Punctate calcifications of pancreas consistent with chronic pancreatitis. 5. Moderate left and mild right hydronephrosis. Ureteral stents are present bilaterally. 6. Severe right renal atrophy. Reviewed by: Jose Hamm MD on 11/13/2020 2:47 PM PDT Approved by: Jose Hamm MD on 11/13/2020 2:47 PM PDT Station ID: [id number]
== END 2020-11-13 12:50 | disposition home or self-care (01) ==
LOC: DI 12:49
PROVIDERS: ATTEND Internal Medicine
DX: C78.6 Secondary malignant neoplasm of retroperitoneum and peritoneum (principal); C79.51 Secondary malignant neoplasm of bone; N13.30 Unspecified hydronephrosis; R18.8 Other ascites; K86.89 Other specified diseases of pancreas; N26.1 Atrophy of kidney (terminal)

== ENCOUNTER 2020-11-23 09:16 | Outpatient (CLI) | payer BC ==
[2020-11-23 09:38] LABS: INR 1.2 (0.8-1.2); PT - PROTHROMBIN TIME 13.7 secs (9.9-12.6)
--- NOTE | 2020-11-23 15:17 | Ultrasound Report ---
PROCEDURE: Abdominal Paracentesis INDICATIONS: ASCITES TECHNIQUE: The indications, alternatives, benefits, risks, and complications of the procedure were explained to the patient. Written informed consent was obtained and placed in the chart. The abdomen and pelvis were examined sonographically, and an appropriate site was chosen for paracentesis. The skin was pre pared and draped in the usual sterile fashion, and 1% lidocaine was infiltrated from the skin down th rough the peritoneal surface. A 19-gauge catheter-covered needle was then introduced into the perito karla space, the catheter was advanced and the needle was withdrawn, and thereafter peritoneal fluid w as withdrawn. The catheter was then removed and a dressing was applied. The fluid was discarded if the clinician did not order diagnostic testing of the fluid. COMPARISON: FINDINGS: Access site: Right lower quadrant Needle: One-Step centesis catheter with introducer needle. Fluid volume and description: 6100 cc clear Fluid sent for diagnostic testing: None Medications: 1% lidocaine for local anaesthesia. Complications: None. IMPRESSION: Successful ultrasound-guided paracentesis. Reviewed by: Wilma Chawla MD on 11/23/2020 3:16 PM PDT Approved by: Wilma Chawla MD on 11/23/2020 3:16 PM PDT Station ID: [id number]
== END 2020-11-23 09:17 | disposition home or self-care (01) ==
LOC: LAB 09:16
PROVIDERS: ATTEND Internal Medicine
DX: C79.89 Secondary malignant neoplasm of other specified sites (principal); C79.51 Secondary malignant neoplasm of bone; N19 Unspecified kidney failure; Z85.3 Personal history of malignant neoplasm of breast
CPT/HCPCS: 36415; 49083; 85610; 85730

== ENCOUNTER 2020-12-07 08:45 | Outpatient (CLI) | payer BC ==
--- NOTE | 2020-12-07 10:42 | Ultrasound Report ---
PROCEDURE: Abdominal Paracentesis INDICATIONS: ASCITES, BREAST CA TECHNIQUE: The indications, alternatives, benefits, risks, and complications of the procedure were explained to the patient. Written informed consent was obtained and placed in the chart. The abdomen and pelvis were examined sonographically, and an appropriate site was chosen for paracentesis. The skin was pre pared and draped in the usual sterile fashion, and 1% lidocaine was infiltrated from the skin down th rough the peritoneal surface. A 19-gauge catheter-covered needle was then introduced into the perito karla space, the catheter was advanced and the needle was withdrawn, and thereafter peritoneal fluid w as withdrawn. The catheter was then removed and a dressing was applied. The fluid was discarded if the clinician did not order diagnostic testing of the fluid. COMPARISON: None FINDINGS: Access site: Right lower quadrant Needle: One-Step centesis catheter with introducer needle. Fluid volume and description: 4.5 L of yellowish clear fluid. Fluid sent for diagnostic testing: Not requested Medications: 1% lidocaine for local anaesthesia. Complications: None. IMPRESSION: Successful ultrasound-guided paracentesis. No immediate complications. Reviewed by: Elisa Christopher MD, PhD on 12/07/2020 10:41 AM PDT Approved by: Elisa Christopher MD, PhD on 12/07/2020 10:41 AM PDT Station ID: [id number]
== END 2020-12-07 23:59 | disposition home or self-care (01) ==
LOC: DI 08:45
PROVIDERS: ATTEND Internal Medicine
DX: C78.6 Secondary malignant neoplasm of retroperitoneum and peritoneum (principal); R18.0 Malignant ascites; C79.51 Secondary malignant neoplasm of bone; D63.1 Anemia in chronic kidney disease; C50.919 Malignant neoplasm of unspecified site of unspecified female breast
CPT/HCPCS: 49083

== ENCOUNTER 2020-12-21 08:11 | Outpatient (CLI) | payer BC ==
--- NOTE | 2020-12-21 13:30 | Ultrasound Report ---
PROCEDURE: Abdominal Paracentesis INDICATIONS: ASCITES, BREAST CANCER TECHNIQUE: The indications, alternatives, benefits, risks, and complications of the procedure were explained to the patient. Written informed consent was obtained and placed in the chart. The abdomen and pelvis were examined sonographically, and an appropriate site was chosen for paracentesis. The skin was pre pared and draped in the usual sterile fashion, and 1% lidocaine was infiltrated from the skin down th rough the peritoneal surface. A 19-gauge catheter-covered needle was then introduced into the perito karla space, the catheter was advanced and the needle was withdrawn, and thereafter peritoneal fluid w as withdrawn. The catheter was then removed and a dressing was applied. The fluid was discarded if the clinician did not order diagnostic testing of the fluid. COMPARISON: 12/07/2020 FINDINGS: Access site: Right lower quadrant abdomen Needle: One-Step centesis catheter with introducer needle. Fluid volume and description: 6.5 L of clear straw-colored fluid. Fluid sent for diagnostic testing: None Medications: 1% lidocaine for local anaesthesia. Complications: None. IMPRESSION: Successful ultrasound-guided paracentesis. Reviewed by: Rm Quiñones MD on 12/21/2020 1:29 PM PDT Approved by: Rm Quiñones MD on 12/21/2020 1:29 PM PDT Station ID: [id number]
== END 2020-12-21 08:12 | disposition home or self-care (01) ==
LOC: DI 08:11
PROVIDERS: ATTEND Internal Medicine
DX: C79.51 Secondary malignant neoplasm of bone (principal); C78.6 Secondary malignant neoplasm of retroperitoneum and peritoneum; D63.1 Anemia in chronic kidney disease; R18.0 Malignant ascites
CPT/HCPCS: 49083

== ENCOUNTER 2020-12-23 07:42 | Outpatient (CLI) | payer BC | END 2020-12-23 07:43 | disposition home or self-care (01) | LOC: DI 07:42 | PROVIDERS: ATTEND Internal Medicine | DX: C78.6 Secondary malignant neoplasm of retroperitoneum and peritoneum (principal); C79.51 Secondary malignant neoplasm of bone; Z79.899 Other long term (current) drug therapy; R18.8 Other ascites | CPT/HCPCS: 93306 ==

== ENCOUNTER 2021-01-04 08:18 | Outpatient (CLI) | payer BC ==
--- NOTE | 2021-01-04 10:10 | Ultrasound Report ---
PROCEDURE: Abdominal Paracentesis INDICATIONS: ASCITES, BREAST CANCER TECHNIQUE: The indications, alternatives, benefits, risks, and complications of the procedure were explained to the patient. Written informed consent was obtained and placed in the chart. The abdomen and pelvis were examined sonographically, and an appropriate site was chosen for paracentesis. The skin was pre pared and draped in the usual sterile fashion, and 1% lidocaine was infiltrated from the skin down th rough the peritoneal surface. A 19-gauge catheter-covered needle was then introduced into the perito karla space, the catheter was advanced and the needle was withdrawn, and thereafter peritoneal fluid w as withdrawn. The catheter was then removed and a dressing was applied. The fluid was discarded if the clinician did not order diagnostic testing of the fluid. COMPARISON: 12/21/2020 FINDINGS: Access site: Right lower quadrant Needle: One-Step centesis catheter with introducer needle. Fluid volume and description: 5.7 L of thin, yellow fluid Fluid sent for diagnostic testing: No. Therapeutic thoracentesis only. Fluid discarded. Medications: 1% lidocaine for local anaesthesia. Complications: None. IMPRESSION: Technically successful ultrasound-guided paracentesis. Reviewed by: Jelani Nascimento MD on 01/04/2021 10:08 AM PDT Approved by: Jelani Nascimento MD on 01/04/2021 10:08 AM PDT Station ID: [id number]
== END 2021-01-04 08:19 | disposition home or self-care (01) ==
LOC: DI 08:18
PROVIDERS: ATTEND Internal Medicine
DX: C78.6 Secondary malignant neoplasm of retroperitoneum and peritoneum (principal); R18.0 Malignant ascites; C79.51 Secondary malignant neoplasm of bone; D63.1 Anemia in chronic kidney disease
CPT/HCPCS: 49083

== ENCOUNTER 2021-01-18 10:10 | Outpatient (CLI) | payer BC ==
--- NOTE | 2021-01-18 15:05 | Ultrasound Report ---
PROCEDURE: Abdominal Paracentesis INDICATIONS: ASCITES, BREAST CANCER TECHNIQUE: The indications, alternatives, benefits, risks, and complications of the procedure were explained to the patient. Written informed consent was obtained and placed in the chart. The abdomen and pelvis were examined sonographically, and an appropriate site was chosen for paracentesis. The skin was pre pared and draped in the usual sterile fashion, and 1% lidocaine was infiltrated from the skin down th rough the peritoneal surface. A 19-gauge catheter-covered needle was then introduced into the perito karla space, the catheter was advanced and the needle was withdrawn, and thereafter peritoneal fluid w as withdrawn. The catheter was then removed and a dressing was applied. The fluid was discarded if the clinician did not order diagnostic testing of the fluid. COMPARISON: None FINDINGS: Access site: Right lower quadrant Needle: One-Step centesis catheter with introducer needle. Fluid volume and description: 5.8L clear yellow Fluid sent for diagnostic testing: None Medications: 1% lidocaine for local anaesthesia. Complications: None. IMPRESSION: Successful ultrasound-guided paracentesis. Reviewed by: Wilma Chawla MD on 01/18/2021 3:03 PM PDT Approved by: Wilma Chawla MD on 01/18/2021 3:03 PM PDT Station ID: [id number]
== END 2021-01-18 10:11 | disposition home or self-care (01) ==
LOC: DI 10:10
PROVIDERS: ATTEND Internal Medicine
DX: C79.81 Secondary malignant neoplasm of breast (principal); C78.6 Secondary malignant neoplasm of retroperitoneum and peritoneum; D63.1 Anemia in chronic kidney disease; R18.0 Malignant ascites
CPT/HCPCS: 49083

== ENCOUNTER 2021-02-01 08:09 | Outpatient (CLI) | payer BC ==
--- NOTE | 2020-12-09 17:19 | ONCOLOGY FOLLOW UP ---
Oncology Follow-Up: ONCOLOGY HISTORY: 1. -Recurrent stage IV, ER/MS positive, HER-2 negative breast cancer with metastases to bone and pelvis since 07/2027 -History of stage III [id number] left breast IDC, ER positive HER-2 negative -Bilateral mastectomy, left axillary lymph node dissection, adjuvant chemotherapy with AC/T, cycle 12 Taxol discontinued due to neuropathy, status post adjuvant XRT to left chest wall completed 11/24/2012 -Aromasin for 1 year, but no continuation of therapy after this due to unclear reasons -Presented with peritoneal carcinomatosis and ascites with pelvic mass on CT on 07/2019 -Biopsy pelvic mass positive for primary breast cancer, ER +99%, MS +9 9%, HER-2 negative -Cycle 1 day 1 Doxil 40 mg per meter squared 09/17/2019-Cycle 2 with increased Doxil 50 sky per meter squared -Completed cycle 4 of Doxil on 12/11/2019 -Letrozole 2.5 mg started 12/11/2019 -Dose reduction of letrozole 2.5 mg to every other day to 2 increasing diarrhea while on letrozole -Switched letrozole to anastrozole on 01/08/2020 for better symptom toleration -C1D1 palboclclib 125 mg D1-21 q28 D on 01/08/2020 -dose reduction palbo to 100 mg on 02/14/2020 due to neutropaenia -Dose reduction of Palbociclib to 75 mg due to persistent neutropenia -Palbociclib stopped 08/05/2020 due to rising tumor markers and worsening clinica l symptoms -Treatment hiatus from 08/05/2020 to 10/21/2020 -Interval restaging scan 11/13/2020 - cycle 1 day 1 of Doxil at 50 mg per metered squared 11/12/2020 HISTORY OF CURRENT ILLNESS/REVIEW OF SYSTEMS: Patient returns for ongoing follow-up Since last seen the patient continues to have ongoing symptoms of recurrent ascites that have made it hard for her to sleep and she has developed a cough since having reaccumulation of ascites She had drainage this this past Monday and has already started to reaccumulate fluid with abdominal distention She remains hopeful that her Doxil will eventually start working She continues to work, managing her ADLs and IADLs, No fevers or chills Review of systems: A complete review of systems was otherwise negative in detail except per HPI FAMILY/SOCIAL HISTORY: Reviewed per initial consultation note dated 09/11/2019 with no changes today PHYSICAL EXAM: Vital signs: Reviewed per chart GEN: AAOX3, NAD HEENT: EOMI MMM, no thrush LYMPH: No cervical or supraclavicular lymphadenopathy Cards: Regular rate and rhythm Abdomen: Appears Significantly distended, Nontender to palpation Extremities: No extremity edema noted Skin: No bruises or rash Neuro: No focal neurological deficits Psych: Appropriately conversant, normal affect LABS: Available labs reviewed IMAGING Available imaging reviewed ASSESSMENT/PLAN: 1. Widely metastatic breast cancer with diffuse bony metastases-The patient's tumor markers continue to increase however we did note that with her original round of Doxil it did take several months to see a response and initially her tumor markers increase before they started decreasing at the 3-month myah. We remain concerned however over the more aggressive reaccumulation of her malignant abdominal ascites -Continue with Doxil at 50 mg/m as previously received as she did tolerate this and there was no evidence of disease progression while on treatment, and also discussed recommendation of this of this over everolimus due to her visceral metastases -continue letrozole given ER positive status -We will need to consider addition of Neulasta given mild leukopenia seen on labs today, However okay to proceed with next cycle of Doxil as is -Would check tumor markers with each 28-day cycle of Doxil -We will need to repeat echocardiogram within the next 3 to 4 weeks, Ordered today 4. Extensive bony metastatic disease-Previously discussed benefits of Zometa given extensive osseous metastatic disease however patient had concerns over osteonecrosis of the job, And wishes to defer at this time -Defer Zometa at this time per patient preference 5. Malignant ascites-Clinical exam with worsening ascites, and tumor markers likely with worsening disease Discussed hopes of improvement as chemotherapy proceeds -Continue with paracentesis prn 6.Subacute renal failure secondary to hydronephrosis from tumor compression- Mildly worsened, may be in the setting of worsening hydronephrosis -Continue follow-up with urology and PCP Clinical Data: Allergies No Known Drug Allergies Allergy (Verified 11/18/20 10:13) Home Medications Felodipine [Plendil] 10 mg PO DAILY 09/11/12 [History Last Taken 11/11/19] Glipizide [Glipizide Xl] 2.5 mg PO DAILY 09/11/19 [History Last Taken 11/11/19] Prochlorperazine Maleate 10 mg PO Q6HR PRN 09/17/19 [History Last Taken Unknown] ondansetron HCL [Zofran] 8 mg PO BID PRN 09/17/19 [History Last Taken Unknown] Atorvastatin [Lipitor] 10 mg PO DAILY 09/25/19 [History Last Taken 11/11/19] Pregabalin [Lyrica] 75 mg PO TID 07/09/20 [History Last Taken Unknown] Letrozole 2.5 mg PO DAILY 08/27/20 [History Last Taken Unknown] Oxycodone HCl [Roxicodone] 5 mg PO Q4HR PRN 08/27/20 [History Last Taken Unknown] polyethylene glycoL 3350 [Miralax] 17 gm PO DAILY PRN 08/27/20 [History Last Taken Unknown]
--- NOTE | 2021-02-01 11:46 | Ultrasound Report ---
PROCEDURE: Abdominal Paracentesis INDICATIONS: ASCITES, BREAST CANCER TECHNIQUE: The indications, alternatives, benefits, risks, and complications of the procedure were explained to the patient. Written informed consent was obtained and placed in the chart. The abdomen and pelvis were examined sonographically, and an appropriate site was chosen for paracentesis. The skin was pre pared and draped in the usual sterile fashion, and 1% lidocaine was infiltrated from the skin down th rough the peritoneal surface. A 19-gauge catheter-covered needle was then introduced into the perito karla space, the catheter was advanced and the needle was withdrawn, and thereafter peritoneal fluid w as withdrawn. The catheter was then removed and a dressing was applied. The fluid was discarded if the clinician did not order diagnostic testing of the fluid. COMPARISON: FINDINGS: Access site: Right lower quadrant Needle: One-Step centesis catheter with introducer needle. Fluid volume and description: 5.1 L yellow Fluid sent for diagnostic testing: No Medications: 1% lidocaine for local anaesthesia. Complications: None. IMPRESSION: Successful ultrasound-guided paracentesis. Reviewed by: Wilma Chawla MD on 02/01/2021 11:45 AM PDT Approved by: Wilma Chawla MD on 02/01/2021 11:45 AM PDT Station ID: [id number]
== END 2021-02-01 08:10 | disposition home or self-care (01) ==
LOC: DI 08:09
PROVIDERS: ATTEND Internal Medicine
DX: C79.51 Secondary malignant neoplasm of bone (principal); C78.6 Secondary malignant neoplasm of retroperitoneum and peritoneum; R18.0 Malignant ascites; D63.1 Anemia in chronic kidney disease; N18.9 Chronic kidney disease, unspecified; C50.919 Malignant neoplasm of unspecified site of unspecified female breast; Z01.812 Encounter for preprocedural laboratory examination
CPT/HCPCS: 36415; 49083; 85610; 85730

== ENCOUNTER 2021-02-01 08:28 | Outpatient (CLI) | payer BC ==
[2021-02-01 08:53] LABS: INR 1.3 (0.8-1.2); PT - PROTHROMBIN TIME 14.9 secs (9.9-12.6)
[2021-02-01 09:01] LABS: PARTIAL THROMBOPLASTIN TIME 36.2 secs (24.9-33.3)
== END 2021-02-01 08:29 | disposition home or self-care (01) ==
LOC: LAB 08:28
PROVIDERS: ATTEND Internal Medicine
DX: Z01.812 Encounter for preprocedural laboratory examination (principal); C50.919 Malignant neoplasm of unspecified site of unspecified female breast
CPT/HCPCS: 36415; 85610; 85730

== ENCOUNTER 2021-02-09 11:59 | Outpatient (CLI) | payer BC | END 2021-02-09 12:00 | disposition home or self-care (01) | LOC: LAB 11:59 | PROVIDERS: ATTEND Urology | DX: Z96.0 Presence of urogenital implants (principal) | CPT/HCPCS: 87086 ==

== ENCOUNTER 2021-02-10 10:27 | Outpatient (CLI) | payer BC ==
--- NOTE | 2021-02-10 16:52 | CONSULTATION NOTE ---
Palliative Care Follow Up - Referral Referring Provider: Dr. Yair Arias Time of Visit: 1030 45 min Referral setting: MAC Referral Reason: Pain of neoplastic origin/CIPN/Met Breast CA/Goals of Care - Information Sources Records reviewed: Previous records reviewed History/Review of Systems obtained from: Patient Exam limitations: No limitations - History of Present Illness Update Brief HPI Update: This is a rian 60-year-old woman has recurrent stage IV breast cancer with mets to the bone and pelvis since 07/2019. She has been restarted on Doxil, continued on letrozole, and is due for restaging scan in late February 2021. Patient continues with recurrent ascites secondary to her peritoneal carcinomatosis and pelvic mass, is due to have her stents replaced next week secondary to hydronephrosis, and continues with large volume paracentesis. Unfortunately she also has developed worsening peripheral edema with chronic nonhealing ulcerations, needing debridement and dressings. She sees wound clinic weekly, and change his dressing in between. Patient does have persistent neuropathy, pain rating across her pelvis and spine as well as her lower scapular area. She has recently increased her pregabalin from 75 Milligrams from twice daily to 3 times daily. She has not needed to use her oxycodone though continues to be quite uncomfortable with abdominal pressure, ascites, lower extremity edema, and shortness of breath with particularly recurrent ascites. Patient does appear much more cachectic with temporal wasting, upper extremity wasting, legs with peripheral edema but does admit to declining functional status. She has been still trying to work, we are here talking about FMLA today. This intertwined's closely with her goals, which continue to be difficult for her to define and talk about. She does understand the seriousness of her illness. She does feel like she is starting her physical decline. She has made her first request for DWD medication with her oncologist last week. She denies persistent depression or anxiety, and tries to keep a positive attitude but is recognizing changes are happening. Past Medical History: History of stage IIIb breast cancer, IDC, bilateral mastectomy with left axillary lymph node dissection with adjuvant chemotherapy. Diabetes type 2 on glipizide, hydronephrosis with stent placement, recurrent ascites, hypertension Social History - Living Situation Living arrangement: At home Living Situation: With spouse/s.o., With family Support System: Patient lives with her rian Larry, they have been for over 27 years, have 2 daughters who are living at home. 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 Medications/Allergies - Medications Home Medications: Ambulatory Orders Medication Instructions Recorded Confirmed Felodipine [Plendil] 5 mg PO DAILY MDD titrating off 09/11/12 02/10/21 Glipizide [Glipizide Xl] 2.5 mg PO DAILY 09/11/19 02/10/21 Prochlorperazine Maleate 10 mg PO Q6HR PRN 09/17/19 02/10/21 ondansetron HCL [Zofran] 8 mg PO BID PRN 09/17/19 02/10/21 Atorvastatin [Lipitor] 10 mg PO DAILY 09/25/19 02/10/21 Pregabalin [Lyrica] 75 mg PO TID 07/09/20 02/10/21 Letrozole 2.5 mg PO DAILY 08/27/20 02/10/21 Oxycodone HCl [Roxicodone] 5 mg PO Q4HR PRN 08/27/20 02/10/21 polyethylene glycoL 3350 [Miralax] 17 gm PO DAILY PRN 08/27/20 02/10/21 - Allergies Allergies/Adverse Reactions: Allergies Allergy/AdvReac Type Severity Reaction Status Date / Time No Known Drug Allergies Allergy Verified 11/18/20 10:13 Review of Systems - Constitutional Constitutional: reports: Fatigue, Weakness, Weight gain (with ascites but cachexia) - Eyes Eyes: reports: Vision loss - Ears, Nose & Throat Ears, Nose & Throat: reports: Dry mouth - Cardiovascular Cardiovascular: reports: Edema, Exertional dyspnea, Decr. exercise tolerance - Respiratory Respiratory: reports: SOB with exertion. denies: SOB at rest - Gastrointestinal Gastrointestinal: reports: Bloating, Poor appetite, Early satiety. denies: Constipation (occ incontinence of stool), Nausea - Musculoskeletal Musculoskeletal: reports: Back pain, Muscle aches, Stiffness, Muscle weakness - Integumentary Integumentary: reports: Dryness, Other (wounds on LE from weeping) - Neurological Neurological: reports: General weakness, Numbness - Endocrine Endocrine: reports: Diabetes type 2 (checking 2x a week with 127 range) - Hematologic/Lymphatic Hematologic/Lymph: reports: Anemia (9.5), Recurrent infections (recently treated with Cipro for leg cellulitis) - All Other Systems All Other Systems: reports: Reviewed and negative Physical Exam - Vital Signs Blood Pressure: 98/66 (wound clinic; has been consistently low at clinics) - Physical Exam General Appearance: positive: No acute distress, Alert, Cachetic Eyes Bilateral: positive: Normal inspection, No scleral icterus Respiratory: negative: No respiratory distress (with activity) Abdomen: positive: Non-tender, Soft, Distended, Taut Skin: positive: Wound (bilaterally LE; dressings intact) Extremities: positive: Pedal edema (up to thighs) Neurologic/Psychiatric: positive: Oriented x3, Mood/affect nml, Weakness Palliative Care - POLST Patient has POLST: No POLST Status: Full Code Pain: Pain worsening, Location (generalized discomfort with ascites/swelling; lower back/pelvic), Severity (3/10) Tiredness/Fatigue: Mild (1-3) Drowsiness/Sedation: Mild (1-3) Nausea: None Anorexia: Mild (1-3), Weight loss (eating less with ascites/anorexia) Dyspnea: Mild (1-3) Depression: None Anxiety: None Feelings of wellbeing/Perceived Quality of Life: Excellent, Acceptable, Worsening Sleep: Sleeps well Constipation: No Performance Status: Patient is reporting increased difficulty with activity tolerance, more symptoms in the context of impacting her ability to work, does find her self having more difficulty overall with ambulation and discomfort. She is able to manage her ADLs, but is noting significant changes in her body. - Palliative Care Discussion: Patient is always quite close to her chest about how she is feeling what is going on. She does report she is noticing decline and does feel like things are changing. She does not feel acutely distressed, but did make her first request to Dr. Arias for with dignity medications. She does feel like her is having more difficulty with this, he was invited to come to the appointment but most likely is not going to participate in any kind of counseling or support regarding this. She feels like they do have some honest conversation but does feel like this is going to be difficult. They are starting to make plans, she is going to go on FMLA, FMLA paperwork was completed in the context of expecting not to return to work. Results - Lab Results Lab results reviewed: Yes Impression and Recommendations - Palliative Care Impression: This is a rian 60-year-old woman with recurrent stage IV lobular breast cancer, with mets to the bone and pelvic mass since 07/2019. She is currently receiving Doxil, and continuing letrozole 2.5 mg daily. She has had some increased pain with her pregabalin now up to 3 times daily, but is having significant recurrent ascites with sequela of lower extremity edema and venous stasis ulcers. Palliative care to provide support regarding symptom management psychosocial support and anticipatory guidance Recommendations/Counseling Done: 1. Pain of neoplastic origin. Patient presents with multifactorial pain, to mostly to bone mets and peripheral neuropathy, as well as abdominal discomfort and lower extremity edema. She does have oxycodone available for escalating pa in, has not needed to use it up to this point. Has just recently titrated up to the pregabalin to 75 mg 3 times daily, will continue to monitor. 2. Venous stasis ulcers. Patient is being followed by wound clinic, with weekly appointments, has intermittently been treated for cellulitis. Continues to manage, with goal for minimizing infection risk, hopefully for healing, but with persistent lower extremity edema and low protein suspect will continue to be challenging. 3. Recurrent metastatic breast cancer with pelvic and bone mets. Patient does have pending restaging scans, due for stent replacements, continues with Doxil. Is feeling overall some functional decline, increasing symptom burden, and aware treatment is palliative only. Patient ultimate goal is to at home, and considering using DWD medications. Patient will continue to weigh benefits and burdens of treatment. 4. Advanced care planning. We will continue to address as patient is comfortable., Counseling provided regarding DWD process with encouragement to call [facility] [place] to get a volunteer. Did review the process briefly, has made first request. Patient has been encouraged to complete further advanced care planning documents, will continue to address this with patient's comfort level. Reminded to reach out if needs further support for pain or symptom management or advanced care planning, or counseling for support with her or her and her . 45 minutes review of chart, labs, oncology notes and [id number] for counseling regarding symptom management, advanced care planning, coordination of care with oncology team and completion of FMLA paperwork
== END 2021-02-10 10:28 | disposition home or self-care (01) ==
LOC: PC 10:27
PROVIDERS: ATTEND Nurse Practitioner Adult Health
DX: Z51.5 Encounter for palliative care (principal); G89.3 Neoplasm related pain (acute) (chronic); C50.919 Malignant neoplasm of unspecified site of unspecified female breast; C79.51 Secondary malignant neoplasm of bone; C78.6 Secondary malignant neoplasm of retroperitoneum and peritoneum; R18.0 Malignant ascites; L97.909 Non-pressure chronic ulcer of unspecified part of unspecified lower leg with unspecified severity; G62.9 Polyneuropathy, unspecified; H54.7 Unspecified visual loss; E11.51 Type 2 diabetes mellitus with diabetic peripheral angiopathy without gangrene; Z79.899 Other long term (current) drug therapy; Z79.84 Long term (current) use of oral hypoglycemic drugs
CPT/HCPCS: 99215

== ENCOUNTER 2021-02-14 08:05 | Outpatient (CLI) | payer BC | END 2021-02-14 08:06 | disposition home or self-care (01) | LOC: LAB 08:05 | PROVIDERS: ATTEND Urology | DX: Z11.9 Encounter for screening for infectious and parasitic diseases, unspecified (principal); Z20.822 Contact with and (suspected) exposure to COVID-19 ==

== ENCOUNTER 2021-02-15 08:03 | Outpatient (CLI) | payer BC ==
--- NOTE | 2021-02-15 15:50 | Ultrasound Report ---
PROCEDURE: Abdominal Paracentesis INDICATIONS: MALIGNANT ASCITES TECHNIQUE: The indications, alternatives, benefits, risks, and complications of the procedure were explained to the patient. Written informed consent was obtained and placed in the chart. The abdomen and pelvis were examined sonographically, and an appropriate site was chosen for paracentesis. The skin was pre pared and draped in the usual sterile fashion, and 1% lidocaine was infiltrated from the skin down th rough the peritoneal surface. A 19-gauge catheter-covered needle was then introduced into the perito karla space, the catheter was advanced and the needle was withdrawn, and thereafter peritoneal fluid w as withdrawn. The catheter was then removed and a dressing was applied. The fluid was discarded if the clinician did not order diagnostic testing of the fluid. COMPARISON: 02/01/2021, 01/18/2021 FINDINGS: Access site: Right lower quadrant. Needle: One-Step centesis catheter with introducer needle. Fluid volume and description: 5.3 L of clear to slightly yellow-colored fluid. Fluid sent for diagnostic testing: Not ordered. Medications: 1% lidocaine for local anaesthesia. Complications: None. IMPRESSION: 1. Successful ultrasound-guided paracentesis. Reviewed by: Vijay De La Fuente MD on 02/15/2021 3:49 PM PDT Approved by: Vijay De La Fuente MD on 02/15/2021 3:49 PM PDT Station ID: [id number]
== END 2021-02-15 08:04 | disposition home or self-care (01) ==
LOC: DI 08:03
PROVIDERS: ATTEND Internal Medicine
DX: C79.51 Secondary malignant neoplasm of bone (principal); C78.6 Secondary malignant neoplasm of retroperitoneum and peritoneum; D63.1 Anemia in chronic kidney disease; R18.0 Malignant ascites
CPT/HCPCS: 49083

== ENCOUNTER 2021-02-22 07:16 | Outpatient (CLI) | payer BC ==
--- NOTE | 2021-02-22 09:42 | CT Report ---
PROCEDURE: CHEST WO INDICATIONS: BREAST CANCER TECHNIQUE: Noncontrast 1mm axial images were acquired from the pulmonary apices to the posterior costophrenic an gles. Axial 5 mm soft tissue kernel reconstructions were performed as well as 8 mm axial MIP and cor onal and sagittal 5 mm reformations. For radiation dose reduction, the following was used: automate d exposure control, adjustment of mA and/or kV according to patient size. COMPARISON: 11/13/2020 FINDINGS: Image quality: Excellent. Lungs and pleura: No acute air space opacities. 4.4 mm calcified granuloma centrally in the left jay g base. Small focal area of radiation fibrosis in the anterior left upper lobe. No pleural effusions or pneumothorax. Central and peripheral airways are patent and normal in caliber. Mediastinum: Heart size is normal. No pericardial effusion. Coarse calcifications in the left cathy r region. No mediastinal adenopathy by size criteria. Thoracic aorta and central pulmonary arteries are normal in size. Esophagus is normal in caliber. No hiatal hernia. Bones and chest wall: Left chest Mediport. Surgical clips in the left axilla. Surgical changes in th e anterior chest wall bilaterally. Diffuse patchy sclerosis throughout the osseous structures consist ent with metastatic disease. No axillary or supraclavicular adenopathy by size criteria. The thyroid is normal in size and there are no incidental findings. Abdomen: There is ascites present. Please see separately dictated CT abdomen pelvis report for furthe r details. IMPRESSION: 1. No new pulmonary parenchymal lesions. 2. There are changes of radiation fibrosis in the left anterior upper lung. 4. Evidence of remote, healed granulomatous disease in the left lung and hilar region. 4. Diffuse sclerotic metastatic lesions throughout the osseous structures. Reviewed by: Anita Orozco MD on 02/22/2021 9:41 AM PDT Approved by: Anita Orozco MD on 02/22/2021 9:41 AM PDT Station ID: [id number]
--- NOTE | 2021-02-22 09:53 | CT Report ---
PROCEDURE: Abdomen/Pelvis WO INDICATIONS: BREAST CA TECHNIQUE: Noncontrast 5 mm thick sections acquired from the diaphragms to the symphysis. 5 mm coronal and sagi ttal reformats were then performed. For radiation dose reduction, the following was used: automated exposure control, adjustment of mA and/or kV according to patient size. COMPARISON: 11/13/2020 FINDINGS: Image quality: Excellent. ABDOMEN: Lung bases: Lung bases are clear. Heart size is normal. Solid organs: The liver is stable in size and no evidence of mass without IV contrast presents. The gallbladder is surgically absent. Spleen size is normal. Coarse calcifications in the expected locati on of the pancreas. No adrenal masses. Right renal atrophy. Resolution of left hydronephrosis. Bilateral nephroureteral stents are present. Proximal pigtails of both stents are curled in the proximal ureters. Peritoneum and bowel: Large amount of ascites is present. Stomach appears grossly normal. Bowel loop s are decompressed. Nodes and vessels: No new adenopathy visible.. Aorta and inferior vena cava are normal in caliber. Miscellaneous: No ventral hernias. PELVIS: Genitourinary: The urinary bladder is diffusely decompressed and there is air in the expected bladder location. Distal pigtails of bilateral nephroureteral stents are within the posterior inferior aspec t of the bladder. Uterus is present. There is a multilobulated large pelvic mass roughly stable in size compared to the most recent prior study Miscellaneous: No inguinal hernias or adenopathy. Bones: Diffuse patchy sclerotic lesions throughout the osseous structures. IMPRESSION: 1. Similar placement of new bilateral nephroureteral stents with resolution of left hydronephrosis. 2. A stable amount of ascites. 3. Unchanged pelvic mass/masses. 4. Extensive osseous metastatic disease. No new fractures. 5. Air within the urinary bladder is most likely secondary to recent instrumentation. Reviewed by: Anita Orozco MD on 02/22/2021 9:52 AM PDT Approved by: Anita Orozco MD on 02/22/2021 9:52 AM PDT Station ID: [id number]
== END 2021-02-22 07:17 | disposition home or self-care (01) ==
LOC: DI 07:16
PROVIDERS: ATTEND Internal Medicine
DX: C50.919 Malignant neoplasm of unspecified site of unspecified female breast (principal); R18.8 Other ascites; C79.51 Secondary malignant neoplasm of bone; R19.00 Intra-abdominal and pelvic swelling, mass and lump, unspecified site; J70.1 Chronic and other pulmonary manifestations due to radiation

== ENCOUNTER 2021-03-01 08:10 | Outpatient (CLI) | payer BC ==
--- NOTE | 2021-03-02 10:14 | Ultrasound Report ---
PROCEDURE: Abdominal Paracentesis INDICATIONS: MALIGNANT ASCITES TECHNIQUE: The indications, alternatives, benefits, risks, and complications of the procedure were explained to the patient. Written informed consent was obtained and placed in the chart. The abdomen and pelvis were examined sonographically, and an appropriate site was chosen for paracentesis. The skin was pre pared and draped in the usual sterile fashion, and 1% lidocaine was infiltrated from the skin down th rough the peritoneal surface. A 19-gauge catheter-covered needle was then introduced into the perito karla space, the catheter was advanced and the needle was withdrawn, and thereafter peritoneal fluid w as withdrawn. The catheter was then removed and a dressing was applied. The fluid was discarded if the clinician did not order diagnostic testing of the fluid. COMPARISON: None FINDINGS: Access site: Right lower quadrant Needle: One-Step centesis catheter with introducer needle. Fluid volume and description: 4600 cc of clear-colored fluid Fluid sent for diagnostic testing: Not requested Medications: 1% lidocaine for local anaesthesia. Complications: None. IMPRESSION: Successful ultrasound-guided paracentesis. No immediate complications. Reviewed by: Elisa Christopher MD, PhD on 03/02/2021 10:13 AM PDT Approved by: Elisa Christopher MD, PhD on 03/02/2021 10:13 AM PDT Station ID: [id number]
== END 2021-03-01 08:11 | disposition home or self-care (01) ==
LOC: DI 08:10
PROVIDERS: ATTEND Internal Medicine
DX: C78.6 Secondary malignant neoplasm of retroperitoneum and peritoneum (principal); C79.51 Secondary malignant neoplasm of bone; R18.0 Malignant ascites; D63.1 Anemia in chronic kidney disease
CPT/HCPCS: 49083

== ENCOUNTER 2021-03-12 10:30 | Outpatient (CLI) | payer BC ==
--- NOTE | 2021-03-12 11:30 | CONSULTATION NOTE ---
Palliative Care Follow Up - Referral Referring Provider: Dr. Yair Perkins Time of Visit: 10:30 45 minutes Referral setting: MAC Referral Reason: Pain of neoplastic origin/Met Breast CA/ACP - Information Sources Records reviewed: RN notes reviewed History/Review of Systems obtained from: Patient Exam limitations: No limitations - History of Present Illness Update Brief HPI Update: This is a rian 60-year-old woman who has recurrent stage IV breast cancer with mets to the bones and pelvis since 07/2019. She was restarted on Doxil and continued on letrozole, But with progression of disease and worsening fatigue and discomfort with treatment, has chosen to "take a holiday". The goal had been to try and decrease the amount of fluid and frequency of her required therapeutic paracentesis, for which they were draining 5 L at a time. At this point time she is decided to and obtained a aspire catheter on Saturday 03/10 of this week, at that time they drained 5000 mils, with instruction to drain every 2 days 1000 mils to better manage this. Unfortunately she is having some fairly severe pain on the right side of her abdomen, most likely where the tail end of the catheter is. She is due to drain today, if this does not diminish, she will contact interventional radiology. She is wondering if it is pressing against her bowel. Patient does have persistent neuropathy, pain rating across her pelvis and spine as well as her lower scapular area. She is currently taking pregabalin 75 mg 2-3 times daily, and THC at bedtime. She does have oxycodone for breakthrough pain if needed. We are meeting today to talk about advance care directives, patient has met with end-of-life question and physician Dr. Archie Prescott, and obtained a prescription. She has been trying to confirm with [facility] that it is in place and further information about timing. Patient verbalized that she is not planning to go back on chemotherapy, we discussed that any point then she would be eligible to transition to hospice support. We did discuss recommended at the point that she was thinking of DWD, or had more decline, would also recommend hospice support. Patient has continued to lose weight, she is at 111. She is already reaccumulating ascites, she is having increased fatigue, her lower extremity edema somewhat improved, though does have lower extremity wounds as result of weeping. She is quite fatigued and this is both physical and emotional in the context of her ongoing decline. Past Medical History: History of stage IIIb breast cancer, IDC, bilateral mastectomy with left axillary lymph node dissection with adjuvant chemotherapy. Diabetes type 2 on glipizide, hydronephrosis with stent placement, recurrent ascites, hypertension Social History - Living Situation Living arrangement: At home Living Situation: With spouse/s.o., With family Support System: Patient lives at home with her rian Larry, they have been over 27 years. They do have 2 daughters. Everybody appropriately is struggling with her decline, patient's happy place is [place], they have sold their condo, this will help as far as financial support for them. She is started her FMLA and "officially retired". 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 Medications/Allergies - Medications Home Medications: Ambulatory Orders Medication Instructions Recorded Confirmed Felodipine [Plendil] 5 mg PO PRN PRN MDD b/p > 110/70 09/11/12 02/24/21 Glipizide [Glipizide Xl] 5 mg PO DAILY 09/11/19 03/12/21 Prochlorperazine Maleate 10 mg PO Q6HR PRN 09/17/19 03/12/21 ondansetron HCL [Zofran] 8 mg PO BID PRN 09/17/19 03/12/21 Atorvastatin [Lipitor] 10 mg PO DAILY 09/25/19 02/24/21 Pregabalin [Lyrica] 75 mg PO TID 07/09/20 03/12/21 Letrozole 2.5 mg PO DAILY 08/27/20 03/12/21 Oxycodone HCl [Roxicodone] 5 mg PO Q4HR PRN 08/27/20 03/12/21 polyethylene glycoL 3350 [Miralax] 17 gm PO DAILY PRN 08/27/20 03/12/21 - Allergies Allergies/Adverse Reactions: Allergies Allergy/AdvReac Type Severity Reaction Status Date / Time No Known Drug Allergies Allergy Verified 11/18/20 10:13 Review of Systems - Constitutional Constitutional: reports: Fatigue (fatigue worsening), Weakness, Weight gain (with ascites but cachexia/111) - Eyes Eyes: reports: Vision loss - Ears, Nose & Throat Ears, Nose & Throat: reports: Dry mouth - Cardiovascular Cardiovascular: reports: Edema, Exertional dyspnea, Decr. exercise tolerance - Respiratory Respiratory: reports: Cough, SOB with exertion. denies: SOB at rest - Gastrointestinal Gastrointestinal: reports: Abdominal pain (Right side/concerned related to aspire placement), Bloating, Poor appetite, Early satiety. denies: Constipation (occ incontinence of stool), Nausea - Musculoskeletal Musculoskeletal: reports: Back pain, Muscle aches, Stiffness, Muscle weakness - Integumentary Integumentary: reports: Dryness, Other (wounds on LE from weeping) - Neurological Neurological: reports: General weakness, Numbness - Endocrine Endocrine: reports: Diabetes type 2 (checking 2x a week with 127 range) - Hematologic/Lymphatic Hematologic/Lymph: reports: Anemia (9.5), Recurrent infections (recently treated with Cipro for leg cellulitis) - All Other Systems All Other Systems: reports: Reviewed and negative Physical Exam - Physical Exam General Appearance: positive: No acute distress, Alert, Cachetic Eyes Bilateral: positive: Normal inspection, No scleral icterus ENT: positive: No signs of dehydration Neck: positive: Trachea midline Respiratory: negative: No respiratory distress (with activity) Abdomen: positive: Non-tender, Soft, Distended, Taut Skin: positive: Wound (bilaterally LE; dressings intact) Extremities: positive: Pedal edema (up to thighs) Neurologic/Psychiatric: positive: Oriented x3, Mood/affect nml, Weakness Palliative Care - POLST Patient has POLST: Yes POLST Status: DNR, Comfort Measures (completed today) Pain: Pain worsening, Location (right sided abdominal pain), Severity (severe), Comment (baseline 3/10) Tiredness/Fatigue: Mild (1-3) Drowsiness/Sedation: None Nausea: None Anorexia: None Dyspnea: Mild (1-3) Depression: None Anxiety: None Feelings of wellbeing/Perceived Quality of Life: Fair, Worsening Sleep: Sleeps well Performance Status: Patient is independent, and ambulatory able to manage her own ADLs. But is fin ding activity tolerance more difficult with increasing fatigue. - Palliative Care Discussion: Met with patient per her request to talk about advance care planning. We did discuss in the context with no further treatment, she would be eligible for hospice. She would like to talk to her regarding this, encouraged him to reach out and call me with any questions. Patient is still seeing Dr. perkins and getting blood work, but is not planning on further treatment though she has had an aspire placed and currently is having some complications with this. We did discuss though in the context of future, particularly regarding patient's plan to take DWD meds will need hospice support particularly in follow-up for her family. Patient is quite clear at this point in time she is comfort focused care, would not accept any intervention that is not able to be managed here it would be, would not have surgery if for obstruction or dialysis for further renal complications. She does express both emotional and physical fatigue with her declining status. She has completed her steps for DWD, but has not been able to make contact with [facility] to confirm prescription. She has retired from work, they did a rian attribute for her and is appropriately grieving move along. 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 Did discuss considering Legacy work for daughters, will consider. Did provide 5 wishes for talking about her end-of-life wishes, things that are important to her, particularly around last days and memorial planning. Results - Lab Results Lab results reviewed: Yes Impression and Recommendations - Palliative Care Impression: This is a rian 60-year-old woman with recurrent stage IV lobular breast cancer with mets to the bone and pelvic mass since 07/2019. She is currently on a "break", with recent placement of aspire catheter for her management of ascites, continuing letrozole 2.5 mg daily. 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 Palliative care continue provide support for advanced care planning, and anticipatory guidance, and symptom management. Recommendations/Counseling Done: 1. Acute on chronic pain. Patient has multifactorial pain, most of is related to her bone mets and peripheral neuropathy, is continue pregabalin 75 mg 3 times daily. She presents today with acute pain in her right quadrant, this is after placement of her Pleurx catheter, suspect related to this. Encouraged her to use the oxycodone particularly prior to draining, if does not resolve over the next 24 to 48 hours recommended she follow-up with IR back at [facility]. This is not the norm. 2. Venous stasis ulcer. Patient is having some decrease in swelling, is hoping with less ascites, will continue to improve. Is being managed by wound care. 3. Recurrent metastatic breast cancer with pelvic and bone mets. She is not planning to return to treatment, is going to manage her ascites with her aspire catheter, and ultimate goal is to have a at home with DWD medications. She has completed these steps. 4. Advanced care planning. Patient requested meeting regarding advance care planning documents, did complete POLST with goals to focus on comfort spending time with friends and family and end-of-life a comfortable respectful at home. She is a DNR/DNI and comfort focused treatment. Introduced patient currently would qualify for hospice if no longer considering treatment, also can be introduced at a later date. Counseling provided regarding hospice services, reviewed DWD, will reach out and confirm medications available and timeline for accessing. 45 minutes review of chart, labs, scans, meeting with patient [id number] with counseling regarding advance care planning, and anticipatory guidance
== END 2021-03-12 10:31 | disposition home or self-care (01) ==
LOC: PC 10:30
PROVIDERS: ATTEND Nurse Practitioner Adult Health
DX: Z51.5 Encounter for palliative care (principal); G89.3 Neoplasm related pain (acute) (chronic); C50.919 Malignant neoplasm of unspecified site of unspecified female breast; C79.51 Secondary malignant neoplasm of bone; R18.8 Other ascites; R53.83 Other fatigue; E11.40 Type 2 diabetes mellitus with diabetic neuropathy, unspecified; I10 Essential (primary) hypertension; D64.9 Anemia, unspecified; Z66 Do not resuscitate; I83.009 Varicose veins of unspecified lower extremity with ulcer of unspecified site; L97.909 Non-pressure chronic ulcer of unspecified part of unspecified lower leg with unspecified severity
CPT/HCPCS: 99215

== ENCOUNTER 2021-04-08 10:59 | Outpatient (CLI) | payer BC ==
--- NOTE | 2021-04-08 16:39 | CONSULTATION NOTE ---
Palliative Care Follow Up - Referral Referring Provider: Dr. Yair Arias Time of Visit: 11:00 45 minutes Referral setting: MAC Referral Reason: Pain of neoplastic origin/Met Breast CA/ACP - Information Sources Records reviewed: Previous records reviewed History/Review of Systems obtained from: Patient Exam limitations: No limitations - History of Present Illness Update Brief HPI Update: This is a rian 60-year-old woman has recurrent stage IV breast cancer with mets to the bones and pelvis since 07/2019. She was restarted on Doxil and had continued on letrozole, but with progression of disease and worsening fatigue and discomfort with treatment she has chosen to discontinue. She has since had a aspire catheter placed, as she been having significant ascites, requiring a paracentesis every 1 to 2 weeks with drainage of anywhere from 4 to 6 L. With the new drain, she is able to every 2 days, drained about 1000-12 100 mils with good relief. This is also brought relief for her lower extremity edema, her lower extremity weeping wounds have healed the skin is quite fragile but healed. No signs or symptoms of infection but some telangiectasis is present. 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 This is been a relief for her. We are meeting today in follow-up, patient is choosing no further treatment. She does not want any further testing nor further interventions. She is ready to transition to hospice. She was hoping her was going to join us, but it has been difficult as far as making that huge sleep. She is having increased pain, she has been very opioid adverse, and has been controlled on her pregabalin 75 mg a.m. and 275 mg at p.m., but is waking in pain 3 to 4 hours after her nighttime dosing. She is having increased discomfort, and identifies her pain today at a 3 out of 10. She does have pain mostly in her mid to lower back. She does have noted bony mets there. She is continue to lose weight, today she is 104, she is eating well, though does appear quite thin. She denies any nausea, has had alternating constipation and diarrhea. Patient has completed her DWD arrangements and has obtained a prescription, it is sitting at [facility]. She is appropriately tearful in considering this transition, but we are both in agreement most likely will benefit early relationship with hospice her family overall. She does have progressive and persistent fatigue but this has improved off of treatment. She has had her ureteral stents replaced recently, reports she has decreased urine output, though we did review most likely some of this is her more frequent fluid shifts with draining every 2 days. Past Medical History: History of stage III breast cancer, IDC, bilateral mastectomy with left axillary lymph node dissection with adjuvant chemotherapy. Diabetes type 2 on glipizide, hydronephrosis with stent placement, recurrent ascites, hypertension Social History - Living Situation Living arrangement: At home Living Situation: With spouse/s.o., With family Support System: Patient lives at home with her rian Larry, they have been over 27 years. She was able to spend time in [place] which is her happy place, they have finally sold her condo. This is helped as far as financial support for them. She has started her FMLA and is "officially retired". They had her two daughters are living with them currently, they both work here at [employer] as well as well as her who works in [employer]. Medications/Allergies - Medications Home Medications: Ambulatory Orders Medication Instructions Recorded Confirmed Felodipine [Plendil] 5 mg PO .Q 2DAYS 09/11/12 04/08/21 Glipizide [Glipizide Xl] 2.5 - 5 mg PO DAILY 09/11/19 04/08/21 Prochlorperazine Maleate 10 mg PO Q6HR PRN 09/17/19 04/08/21 ondansetron HCL [Zofran] 8 mg PO BID PRN 09/17/19 04/08/21 Pregabalin [Lyrica] 75 mg PO TID 07/09/20 04/08/21 Oxycodone HCl [Roxicodone] 5 mg PO Q4HR PRN 08/27/20 04/08/21 Loperamide [Imodium] 2 mg PO PRN PRN 04/08/21 04/08/21 dexAMETHasone [Decadron] 2 mg PO DAILY 04/08/21 04/08/21 polyethylene glycoL 3350 [Miralax] 17 gm PO DAILY PRN 04/08/21 04/08/21 - Allergies Allergies/Adverse Reactions: Allergies Allergy/AdvReac Type Severity Reaction Status Date / Time No Known Drug Allergies Allergy Verified 11/18/20 10:13 Review of Systems - Constitutional Constitutional: reports: Fatigue (remains fatigued but better off chemotherapy), Weakness, Weight loss (104) - Eyes Eyes: reports: Vision loss - Ears, Nose & Throat Ears, Nose & Throat: reports: Dry mouth - Cardiovascular Cardiovascular: reports: Exertional dyspnea, Decr. exercise tolerance. denies: Edema - Respiratory Respiratory: reports: Cough (improved), SOB with exertion. denies: SOB at rest - Gastrointestinal Gastrointestinal: reports: Abdominal pain (right side today where tube at internally), Constipation, Diarrhea, Early satiety. denies: Nausea - Genitourinary Genitourinary: reports: Other (notes decreased output) - Musculoskeletal Musculoskeletal: reports: Back pain, Muscle aches, Stiffness, Muscle weakness - Integumentary Integumentary: reports: Dryness, Nail changes - Neurological Neurological: reports: General weakness, Numbness (residual peripheral neuropathy) - Psychiatric Psychiatric: reports: Anxiety - Endocrine Endocrine: reports: Diabetes type 2 (checking 2x a week with 127 range) - All Other Systems All Other Systems: reports: Reviewed and negative Physical Exam - Vital Signs Pulse Rate: 83 Respiratory Rate: 16 Blood Pressure: 109/70 - Physical Exam General Appearance: positive: No acute distress, Alert, Cachetic Eyes Bilateral: positive: Normal inspection, No scleral icterus ENT: positive: No signs of dehydration Neck: positive: Trachea midline Respiratory: negative: No respiratory distress (with activity) Abdomen: positive: Non-tender, Soft, Distended (mild) Skin: negative: Wound (wounds healed) Extremities: positive: No pedal edema Neurologic/Psychiatric: positive: Oriented x3, Mood/affect nml, Weakness Palliative Care - POLST Patient has POLST: Yes POLST Status: DNR, Comfort Measures Pain: Pain worsening, Location (mid thoracic/lower back area), Severity (3/10), Pattern (pain worse at night laying down) Tiredness/Fatigue: Mild (1-3) Drowsiness/Sedation: None Nausea: None Anorexia: None Dyspnea: Mild (1-3) Depression: None Anxiety: None Feelings of wellbeing/Perceived Quality of Life: Excellent, Acceptable, Improved Sleep: Sleeps poorly (related to pain) Constipation: Yes, Intermittent constipation (alternating with constipation usi ng immodium/miralax) Performance Status: Patient is ambulatory, does get quite short of breath with any activity. She does have decreased activity tolerance but is feeling better overall since stopping chemo. Most likely her hemoglobin is improving as far as her fatigue. She is independent in her ADLs and is currently still driving. - Palliative Care Discussion: We had met last time to finish her advance care planning, had completed a POLST with [facility] and comfort measures. Patient has completed her DWD process, and has some awaiting [place]. We did discuss where she is currently, is feeling like it is time to transition to hospice to have services available, does not have any other oncology needs or is planning further testing. She is having more pain, and would be helpful to have hospice support to oversee patient's pain management. Patient has not used any opioids at this point is opioid leonard, she has goals that would like to stay more clear and less mottled, we discussed methadone most likely better option but would need hospice support to make that change. We did discuss the difficulty for her family and excepting "hospice", but also the support they might provide that will be of help. Will arrange for hospice admission nurse to coordinate with patient and so he can join for initial visit. 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 She is not planning to restart any further treatment, goal is for comfort focused care. Agreed this is a good transition point for transition to hospice, particularly since she is having escalating pain and could use support regarding this. Palliative care will coordinate with hospice team for transition to hospice referral and admissi on Recommendations/Counseling Done: 1. Pain of neoplastic origin. Patient has multifactorial pain, related to bone mets and chemotherapy-induced peripheral neuropathy. She had changed her pregabalin to 1 in the morning and 2 at night but still awakening in pain. She has had reluctance to start any oxycodone, she has had this for quite a while. Encouraged her to at least take at bedtime, spread back her pregabalin to 3 times daily, and take an oxycodone pregabalin at bedtime to see if she can get better sleep. Education provided that only last 3 or 4 hours, but to be able to transition to long-acting or methadone need her to be a little more aggressive or at least trial the oxycodone for response. Verbalized understanding. Given her underlying etiology includes bone mets, will initiate a low dose secondary to her diabetes dexamethasone 2 mg. She was going to decrease her glipizide to half tab, if blood sugar is trending up, will go back to full tab. 2. Venous stasis ulcers. Patient's swelling has resolved with resolution of ascites. Wounds are healed the skin very fragile. No further pain or discomfort no signs or symptoms of infection. 3. Ascites. This is currently managed with her Pleurx catheter, she is draining every 2 days about 1000 1200 mils. We did discuss could push this to every 3 days if she wanted to try, particularly given light of her increased right pain feels like pulling in there today. She will continue to work with her drainage, she is independent in this. She would like to use a hot tub, discussed would need to its almost sealed to cover this aggressively. We did discuss aqua guard as well as monitoring for any kind of water leakage. She feels that this does help her back if she is able to do this. She is ordering supplies tomorrow. Reviewed hospice and takes over supply ordering, so helpful to have some lead time. 4. Recurrent metastatic breast cancer with pelvic and bone mets. She is not planning to return to treatment, she is resigned to no further testing, and aware of comfort focused care hospice. Coordination of care with oncology team for transition to hospice. 5. Advanced care planning. Patient's POLST is completed with goals to focus on comfort. She would like to have a at home. Will refer to hospice, does have DWD set up. Counseling provided and reassurance given regarding hospice services. 45 minutes with greater than 50% of this done in counseling and anticipatory guidance for transition to hospice, pain and symptom management and psychosocial support
== END 2021-04-08 11:00 | disposition home or self-care (01) ==
LOC: PC 10:59
PROVIDERS: ATTEND Nurse Practitioner Adult Health
DX: Z51.5 Encounter for palliative care (principal); G89.3 Neoplasm related pain (acute) (chronic); C50.919 Malignant neoplasm of unspecified site of unspecified female breast; C79.51 Secondary malignant neoplasm of bone; I87.2 Venous insufficiency (chronic) (peripheral); R18.8 Other ascites; Z66 Do not resuscitate; R53.83 Other fatigue; E11.9 Type 2 diabetes mellitus without complications; Z79.84 Long term (current) use of oral hypoglycemic drugs
CPT/HCPCS: 99215